=== PATIENT | male | born 1950 | race African-American/Black ===

== ENCOUNTER → 2020-09-27 11:07 | Outpatient (CLI) | payer MEDICARE, SELFPAY ==
--- NOTE | 2020-09-27 11:15 | XR_ITS ---
PROCEDURE: XR CHEST 2V CLINICAL HISTORY: ASTHMA,SOB COMPARISON: No exams were available for comparison FINDINGS: The cardiomediastinal silhouette and pulmonary vascularity are within normal limits. The lungs are clear without infiltrates, suspicious nodules, or pleural effusions. No acute bony abnormalities. IMPRESSION: No acute findings. Dictated by: Padma Ryan 09/27/2020 15:29 Padma Ryan in [place] 09/27/2020 15:29
== END ==
PROVIDERS: PCP Family Medicine; Visit Provider Family Medicine
DX: J45.909 Unspecified asthma, uncomplicated (principal); R06.02 Shortness of breath
CPT/HCPCS: 71046

== ENCOUNTER → 2020-11-07 14:57 | Outpatient (CLI) | payer MEDICARE, SELFPAY | PROVIDERS: PCP Family Medicine; Visit Provider Internal Medicine Pulmonary Disease | DX: R06.09 Other forms of dyspnea (principal) | CPT/HCPCS: 94060; 94726; 94729 ==

== ENCOUNTER → 2021-11-29 08:17 | Outpatient (CLI) | payer MEDICARE, SELFPAY ==
--- NOTE | 2021-11-29 09:05 | XR_ITS ---
FINAL REPORT CLINICAL HISTORY: RHINITIS,ASTHMA COMPARISON: September 27, 2020 FINDINGS: Two views of the chest were obtained. The heart size and pulmonary vascularity are within normal limits. The mediastinum is normal. The lungs are somewhat hyperinflated. This may represent COPD. There is no pneumothorax. The bony thorax is intact. IMPRESSION: No acute cardiopulmonary process. Reviewed, Interpreted and Dictated by Gianluca Llamas III, MD Transcribed by Lorie Marion Authenticated and [facility]
== END ==
PROVIDERS: PCP Family Medicine; Visit Provider Allergy & Immunology
DX: J30.1 Allergic rhinitis due to pollen (principal); J30.89 Other allergic rhinitis; J45.51 Severe persistent asthma with (acute) exacerbation
CPT/HCPCS: 71046

== ENCOUNTER 2021-12-11 17:15 | Inpatient (IN) | payer MEDICARE, SELFPAY ==
[2021-12-11] VITALS (20 sets, daily range): BP systolic 100–134; BP diastolic 54–86; PULSE 78–151; RESP 16–200; TEMP 36.8; O2SAT 95–99; BMI 27.4; BMI 28.9
--- NOTE | 2021-12-11 17:28 | PC.NURSE ---
JACK BEAVERS at
--- NOTE | 2021-12-11 17:34 | ECG_ITS ---
APPROVED REPORT Exam: Resting ECG HR:147 bpm ECG Measurements Heart Rate 147 AXES QRSd 72 QRS -22 QT 279 T 70 QTc 363 Conclusion ATRIAL FIBRILLATION WITH RAPID VENTRICULAR RESPONSE SEPTAL MYOCARDIAL INFARCTION , PROBABLY OLD [40+ ms Q WAVE IN V1/V2] ABNORMAL ECG UNCONFIRMED REPORT Electronically signed by : Mateus Farley MD 12/14/2021 18:05:50
--- NOTE | 2021-12-11 17:40 | HMH.EDGENADL ---
ED Disposition Condition on Discharge: Good - Critical Care Critical Care Time: Yes (35 min) Total Critical Care Time: 35 Vital system(s) involved:: Circulatory Failure My critical care processes included: Assessment & monitoring of V/S, Initial and Re-exams, Data Review/Interpretation, Coordinating Care, Medication Orders and management, Documentation <Troy Cordero - Last Filed: 12/11/21 19:46> <Mateo Lerner - Last Filed: 12/11/21 20:48> Clinical Impression: Atrial fibrillation with RVR, NSTEMI (non-ST elevated myocardial infarction) Disposition: Admitted As Inpatient Referrals: Tia Warren MD [Primary Care Provider] - Attestation: On 12/11/21, the high probability of a clinically significant, sudden or life threatening deterioration of the following system(s) required my full and direct attention, intervention and personal management. The time I documented below is in addition to time spent performing reported procedures but includes the following listed in this critical care notation. Medical Decision Making - Medical Records Medical records reviewed: Yes: I reviewed the patient's medical records. - Porter Inquiry Pt receiving controlled substance: No - Lab Data Result diagrams: 12/11/21 17:35 12/11/21 17:35 - ECG Data Tracing #1 I reviewed this ECG and interpreted as documented below: - Physician Consults Time: 18:43 (discussed with dr tamara jorge for lovenox, dilt drip, cta, call back if needed) <Troy Cordero - Last Filed: 12/11/21 19:46> - Lab Data Lab results reviewed: Yes: I reviewed the patient's lab results. Result diagrams: 12/11/21 17:35 12/11/21 17:35 - Radiology Data #1 Image(s): Chest Image Reviewed: Yes I have reviewed radiologist's interpretation Preliminary Findings: Normal/NAD - CT Data CT Scan: Chest Time Received: 20:[address] Reviewed: Yes: I have viewed the radiologist's interpretation Preliminary Findings: Normal/NAD - CON Score for Non-Stemi Age of Patient: 70-79 years old Heart Rate: 150-199 bpm Systolic Blood Pressure: 120-139 mmhg Serum Creatinine: 1.20-1.59 mg/dl CHF Killip Class: I-No CHF Other Risk Factors: Elevated Cardiac Enzymes or Biomarkers Non-Stemi Risk Score: 171 <Mateo Lerner S - Last Filed: 12/11/21 20:48> Vital Signs: 12/11/21 17:17 12/11/21 18:07 12/11/21 18:10 Temperature 98.3 F Temperature Source Oral Pulse Rate 113 H 128 H Pulse Rate [Apical] 151 H Respiratory Rate 20 22 Blood Pressure 106/62 L 110/65 Blood Pressure [Right Arm] 122/58 L Blood Pressure Mean Blood Pressure Mean [Right Arm] 79 Blood Pressure Source [Right Arm] Automatic Cuff Blood Pressure Position Blood Pressure Position [Right Arm] Sitting 02 Sat by Pulse Oximetry 98 95 Oxygen Delivery Method Room Air 12/11/21 18:20 12/11/21 18:30 12/11/21 18:41 Temperature Temperature Source Pulse Rate 118 H 78 94 H Pulse Rate [Apical] Respiratory Rate 200 H 20 Blood Pressure 111/59 L 111/57 L 108/56 L Blood Pressure [Right Arm] Blood Pressure Mean 75 78 Blood Pressure Mean [Right Arm] Blood Pressure Source [Right Arm] Blood Pressure Position Sitting Blood Pressure Position [Right Arm] 02 Sat by Pulse Oximetry 96 95 96 Oxygen Delivery Method 12/11/21 18:51 12/11/21 19:00 12/11/21 19:07 Temperature Temperature Source Pulse Rate 146 H 143 H 97 H Pulse Rate [Apical] Respiratory Rate 16 Blood Pressure 100/54 L 111/59 L 116/69 Blood Pressure [Right Arm] Blood Pressure Mean 74 Blood Pressure Mean [Right Arm] Blood Pressure Source [Right Arm] Blood Pressure Position Blood Pressure Position [Right Arm] 02 Sat by Pulse Oximetry 96 96 98 Oxygen Delivery Method Room Air 12/11/21 19:09 12/11/21 19:21 12/11/21 19:50 Temperature Temperature Source Pulse Rate 117 H 127 H 115 H Pulse Rate [Apical] Respiratory Rate 22 22 Blood Pressure 128
--- NOTE | 2021-12-11 17:42 | XR_ITS ---
PROCEDURE INFORMATION: Exam: XR Chest Exam date and time: 12/11/2021 5:54 PM Age: 71 years old Clinical indication: Patient HX: Shortness of breath per patient, history of asthma he also stated. ; Additional info: Racing heart rate TECHNIQUE: Imaging protocol: XR of the chest. Views: 1 view. COMPARISON: CR XR CHEST 2V 11/29/2021 9:09 AM FINDINGS: Lungs: Mild pulmonary scarring. Stigmata of old granulomatous disease. Pleural spaces: Unremarkable. No pleural effusion. No pneumothorax. Heart/Mediastinum: Unremarkable. No cardiomegaly. Vasculature: Vascular calcifications. Bones/joints: Unremarkable. IMPRESSION: No acute findings.
[2021-12-11 17:48] LABS: Chloride 106 mmol/L (98-107)
[2021-12-11 17:49] LABS: Potassium 4.1 mmoL/L (3.5-5.1); Sodium 142 mmol/L (136-145)
[2021-12-11 17:51] LABS: Alanine Aminotransferase 93 U/L (12-78); Alkaline Phosphatase 103 U/L (38-126); Aspartate Amino Transferase 39 U/L (17-59); Bilirubin,Total 0.8 mg/dl (0.2-1.3); Blood Urea Nitrogen 34 mg/dl (9-20); Creatinine Clearance Estimated 54 mL/min (50-200); Estimated Glomerular Filt Rate 50 ml/min (>60); GFR (African American) 61 ML/MIN (>60)
[2021-12-11 17:52] LABS: Albumin/Globulin Ratio 1.5 (1.1-1.8); Anion Gap 9.1 mEq/L (5-15); Calcium 9.3 mg/dl (8.4-10.2); Carbon Dioxide 31 mmol/L (22.0-30.0); Globulin 2.7 g/dL (1.3-3.2); Glucose 117 mg/dl (74-100); Total Protein,Serum 6.7 g/dl (6.3-8.2)
[2021-12-11 18:07] LABS: Troponin I 0.41 ng/ml (0.00-0.034)
--- NOTE | 2021-12-11 18:15 | PC.NURSE ---
DILT DRIP INCREASED TO 10MG
--- NOTE | 2021-12-11 18:32 | PC.NURSE ---
DILT DRIP INCREASED TO 15MG
[2021-12-11 18:36] LABS: Basophils % 0.5 % (0.1-2.0); Eosinophils # 0.1 K/mm3 (0.0-0.4); Eosinophils % 1.1 % (0.1-12.0); Hematocrit 48.5 % (42.0-52.0); Hemoglobin 16.1 g/dL (14.1-18.0); Lymphocytes # 1.5 K/mm3 (0.7-4.5); Lymphocytes % 18.2 % (10-50); Mean Corpuscular HGB Conc 33.3 g/dL (31.8-35.4); Mean Corpuscular Hemoglobin 34.5 pg (27.0-31.2); Mean Corpuscular Volume 103.6 fl (80-94); Mean Platelet Volume 8.3 fl (7.4-10.4); Monocytes # 0.7 K/mm3 (0.1-1.0); Monocytes % 8.1 % (1.7-9.3); Neutrophils # 5.7 K/mm3 (1.8-7.8); Platelet Count 231 K/mm3 (142-424); Red Blood Count 4.68 M/mm3 (4.60-6.20); Red Cell Distribution Width 14.1 % (11.5-17.5)
--- NOTE | 2021-12-11 18:37 | PC.NURSE ---
Dr mcdonald paged
--- NOTE | 2021-12-11 18:37 | PC.NURSE ---
Dr Cordero on with Dr Walton.
--- NOTE | 2021-12-11 18:40 | CT_ITS ---
PROCEDURE INFORMATION: Exam: CTA Chest With Contrast Exam date and time: 12/11/2021 7:30 PM Age: 71 years old Clinical indication: Other: Syncope; Additional info: Syncope, elev trop TECHNIQUE: Imaging protocol: Computed tomographic angiography of the chest with contrast. 3D rendering (Not supervised by radiologist): MIP and/or 3D reconstructed images were created by the technologist. Radiation optimization: All CT scans at this facility use at least one of these dose optimization techniques: automated exposure control; mA and/or kV adjustment per patient size (includes targeted exams where dose is matched to clinical indication); or iterative reconstruction. Contrast material: ISOVUE 370; Contrast volume: 70 ml; Contrast route: INTRAVENOUS (IV); COMPARISON: CR XR CHEST PORTABLE 12/11/2021 5:54 PM FINDINGS: Pulmonary arteries: No pulmonary emboli. Aorta: [id number] atherosclerotic disease of the aorta. Lungs: Unremarkable. No consolidation. No masses. Pleural spaces: Unremarkable. No pneumothorax. No pleural effusion. Heart: Coronary artery calcifications. Lymph nodes: Unremarkable. No enlarged lymph nodes. Liver: Low attenuation hepatic lesions measuring up to 9 mm in diameter are incompletely characterized, but are likely cysts. No followup imaging is recommended. Gallbladder and bile ducts: Contracted gallbladder. Adrenal glands: There is a 1.3 cm right adrenal nodule that cannot be classified as a lipid rich adenoma based on this examination. Kidneys and ureters: Parapelvic cyst in the left kidney are noted. 8 mm exophytic left renal lesion on image 115 series 5 is favored to be a hyperdense cyst. Bones/joints: Unremarkable. No acute fracture. Soft tissues: Unremarkable. IMPRESSION: 1. No pulmonary emboli. 2. There is a 1.3 cm right adrenal nodule that cannot be classified as a lipid rich adenoma based on this examination. Consider 12 month follow-up adrenal CT. (Reference: Enrique) COMMENTS: Consistent with the [employer]'s Incidental Findings Committee white paper (J Am Cony Radiol 2018): Any incidental renal lesion less than 1 cm or classified as too small to characterize, or any incidental cystic renal lesion characterized as simple-appearing, is likely benign. No follow-up imaging is recommended for these lesions per consensus recommendations based on imaging criteria. REFERENCES: Enrique MARINO, et al. Management of Incidental Adrenal Masses: A White Paper of the ACR Incidental Findings Committee. J Am Cony Radiol. 2017;14(8):8917-3296.
--- NOTE | 2021-12-11 18:45 | PC.NURSE ---
DILT DRIP INCREASED TO 20MG PER V.O DR ECHEVARRIA AND DR. RESENDEZ.
--- NOTE | 2021-12-11 19:00 | PC.NURSE ---
SPOKE WITH NIGHTWATCH REGARDING DIG DOSING. STATES TO GIVEN 250MCG IVP THEN 6-8 HRS GIVE 125MCG, THEN AFTER 6-8HRS GIVE 125MCG
[2021-12-11 19:57] LABS: Coronavirus 19, PCR Not Detected (NotDetected); Influenza A, PCR Not Detected (NotDetected); Influenza B, PCR Not Detected (NotDetected)
--- NOTE | 2021-12-11 20:40 | PC.NURSE ---
HS notified of need for room for admission
--- NOTE | 2021-12-11 20:41 | PC.NURSE ---
Patient admitted to 216 stepdown to service of Dr. Lerner to Dr. Pabon. Dx A Fib with RVR
[2021-12-11 20:51] LABS: T4 (Thyroxine) 8.4 ug/dl (5.53-11.0)
[2021-12-11 21:05] LABS: Thyroid Stimulating Hormone 0.17 uIU/mL (0.465-4.68)
[2021-12-11 21:10] LABS: NT Pro Brain Natriuretic Pep. 3600 pg/mL (0-125)
[2021-12-11 21:54] LABS: Troponin I 0.31 ng/ml (0.00-0.034)
--- NOTE | 2021-12-11 22:02 | PC.NURSE ---
critical troponin of 0.31 called by lab. notified. no new orders
--- NOTE | 2021-12-11 22:07 | PC.NURSE ---
PT ARRIVED TO FLOOR VIA STRETCHER FROM ED W/STAFF @ [id number]
[2021-12-12] VITALS (29 sets, daily range): BP systolic 81–146; BP diastolic 40–114; PULSE 76–154; RESP 16–20; TEMP 36.4–37; O2SAT 93–100; BMI 27.9
--- NOTE | 2021-12-12 | IR_ITS ---
APPROVED REPORT Patient Location: Inpatient PROCEDURES Left heart catheterization Left ventriculogram Selective coronary angiogram INDICATION Acute non-ST elevation myocardial infarction, Coronary artery disease, Atrial fibrillation rapid ventricular response, Abnormal echocardiogram apical hypokinesis Informed consent was obtained prior to the procedure. COMPLICATIONS None Estimated Blood Loss: Less than 10 mls TECHNIQUE One percent lidocaine used to anesthetize the right anterior aspect of the wrist. The right radial artery was accessed via the Seldinger technique. A 6 Sinhala sheath was placed in the right radial artery. 2.5 mg of verapamil, 800 mcg of nitroglycerin, 1mg Lidocaine and 5000 U Heparin were given through the arterial sheath. The papa catheter was also used to perform left heart catheterization, left ventriculogram and selective coronary angiogram. At the end of the procedure the sheath was removed good hemostasis was achieved using Traclet band, patient was transferred to the postop holding area in stable condition. ANGIOGRAPHIC RESULTS The left main artery Normal The left anterior descending artery Ostially occluded. The entire LAD fills via large collaterals from the distal right coronary artery. The mid LAD has an 90% concentric stenosis The circumflex artery Nondominant with a proximal calcified 30% stenosis followed by a mid vessel calcified 30% stenosis The right coronary artery Dominant with a proximal concentric 20 to 30% stenosis. Distally the vessel fills the LAD via large septal perforating vessels as well as via the distal LAD The MOSELEY ventriculogram reveals Preserved at 60% with mild apical hypokinesis The left ventricular end-diastolic pressure 15 mmHg IMPRESSION Coronary artery disease as described above with a chronically occluded proximal LAD which fills nicely via dense collaterals from the distal right coronary artery and via large septal perforating vessels Atrial fibrillation rapid ventricular response Preserved ejection fraction Borderline elevated LVEDP PLAN 1. Start patient on amiodarone drip and continue anticoagulation 2. Recommend BARBRA on Friday with planned cardioversion 3. The films were sent to [facility] and I discussed the patient with Dr. Anand. Given the chronicity of the LAD occlusion patient may be a better candidate for chronic medical management Electronically signed by : Patric Walton MD 12/12/2021 12:17:00
[2021-12-12 01:00] LABS: Troponin I 0.32 ng/ml (0.00-0.034)
--- NOTE | 2021-12-12 01:00 | PC.NURSE ---
Critical lab reported
--- NOTE | 2021-12-12 06:35 | PC.NURSE ---
Bhavya SANCHEZ NOTIFIED OF CONSULT
[2021-12-12 06:51] LABS: Basophils % 0.5 % (0.1-2.0); Eosinophils # 0.1 K/mm3 (0.0-0.4); Eosinophils % 1.6 % (0.1-12.0); Hematocrit 41.4 % (42.0-52.0); Lymphocytes # 1.7 K/mm3 (0.7-4.5); Lymphocytes % 24.8 % (10-50); Mean Corpuscular HGB Conc 32.6 g/dL (31.8-35.4); Mean Corpuscular Hemoglobin 33.8 pg (27.0-31.2); Mean Corpuscular Volume 103.7 fl (80-94); Monocytes # 0.6 K/mm3 (0.1-1.0); Neutrophils # 4.4 K/mm3 (1.8-7.8); Platelet Count 200 K/mm3 (142-424); Red Cell Distribution Width 14.1 % (11.5-17.5); White Blood Count 6.8 K/mm3 (4.8-10.8)
--- NOTE | 2021-12-12 06:52 | PC.NURSE ---
Pt remains on Diltaizem gtt@ 10 mg/hr. He is currently NPO for cardiac consult this am. Pt denies any discomfort. On RA. BP stable. at bedside. Will continue to monitor.
[2021-12-12 06:57] LABS: Chloride 110 mmol/L (98-107); Potassium 3.6 mmoL/L (3.5-5.1); Sodium 138 mmol/L (136-145)
[2021-12-12 06:59] LABS: Blood Urea Nitrogen 22 mg/dl (9-20); Creatinine Clearance Estimated 77 mL/min (50-200); Estimated Glomerular Filt Rate 83 ml/min (>60); GFR (African American) 101 ML/MIN (>60)
[2021-12-12 07:00] LABS: Anion Gap 6.6 mEq/L (5-15); Calcium 8.3 mg/dl (8.4-10.2); Carbon Dioxide 25 mmol/L (22.0-30.0); Chol/HDL Ratio 2.9 (1-3.5); Cholesterol 218 mg/dl (140-200); Glucose 106 mg/dl (74-100); HDL Cholesterol 75 mg/dl (40-60); Magnesium 1.9 mg/dl (1.6-2.3); Triglycerides 98 mg/dl (30-150); VLDL Cholesterol 20 mg/dL (0-40)
[2021-12-12 07:11] LABS: Direct LDL Cholesterol 105.11 mg/dL (100-129)
[2021-12-12 07:16] LABS: Hemoglobin 13.5 g/dL (14.1-18.0)
--- NOTE | 2021-12-12 07:23 | P.CONPHA_ITS ---
[facility] Pharmacy VTE Monitoring - Patient Demographics Admission date: 12/11/21 Report Date: 12/12/21 Time: 07:23 Allergies/Adverse Reactions: Patient Allergies No Known Allergies Allergy (Unverified 11/15/20 14:00) Height: 1.68 m Weight: 78.925 kg Patient Problems: Current Active Problems Atrial fibrillation with RVR (Acute) NSTEMI (non-ST elevated myocardial infarction) (Acute) - VTE Risk Labs: VTE Related Lab Results Hgb 13.5 g/dL (14.1-18.0) L D 12/12/21 06:20 Hct 41.4 % (42.0-52.0) L 12/12/21 06:20 Plt Count 200 K/mm3 (142-424) 12/12/21 06:20 BUN 22 mg/dl (9-20) H D 12/12/21 06:20 Creatinine 0.90 mg/dl (0.66-1.25) D 12/12/21 06:20 Estimated Creat Clear 77 mL/min (50-200) 12/12/21 06:20 VTE Risk Level: Moderate Risk - Prophylaxis VTE Prophylaxis Ordered?: Yes Types of VTE Prophylaxis: TEDS Knee High Location of Applied Device: Bilateral Lower Extremeties
--- NOTE | 2021-12-12 07:47 | HMH.PHAINT ---
MEDICATION RECONCILIATION COMPLETED ON PATIENT USING EXTERNAL FILL HISTORY FROM PHARMACY. -JEY GALVEZ, JOLANTAD
--- NOTE | 2021-12-12 08:00 | CA_ITS ---
APPROVED REPORT EXAM: Comprehensive 2D, Doppler, and color-flow Echocardiogram Sign Language Teacher: Vickie Astudillo RT(R) Ht: 5 ft 6 in Wt: 171lbs BSA: 1.87 BP: 126/86 mmHg Indications: Hypertension/HDD 2D Dimensions LVOT 2.05 cm (M/F) 1.5-2.5 LVEF (Sidhu's) 68.40 % M: 52 - 72 LV Volume 74.10 mL M: 62 - 150 LV Volume Index 39.62 mL/m2 M: 34 - 74 LA Volume 36.70 mL LA Volume Index 19.62 mL/m2 (M/F) 16-34 M-Mode Dimensions RVDd 2.85 cm (0.9-2.6) LA Diam 3.84 cm (1.9-4.0) LVDd 4.28 cm (3.5-5.7) Ao Diam 2.80 cm (2.0-3.7) LVDs 3.64 cm (3.5-5.7) IVSd 0.78 cm (0.6-1.1) PWd 0.93 cm (0.6-1.1) EF (Teich) 32.00% FS 15.00% EDV (Teich) 82.20 mL ESV (Teich) 55.90 mL Tricuspid Valve TR P. Velocity 201.00 cm/s RAP Estimate 10.00 mmHg RVSP 26.20 mmHg Left Ventricle Left atrium is mildly enlarged, left ventricle is normal size, mild concentric left ventricular hypertrophy, estimated ejection fraction 55% with no obvious regional wall motion abnormality in the afternoons, diastolic parameters are inconclusive. Right Ventricle Right atrium and right ventricle are normal size and contractility. Aortic Valve Aortic valve is thickened and calcified without aortic stenosis or aortic insufficiency. Mitral Valve Mitral valve is minimally thickened, there is mild mitral regurgitation. Tricuspid Valve Tricuspid valve grossly normal, there is mild tricuspid regurgitation, calculated right ventricular systolic pressure 26 mmHg. Pulmonic Valve Pulmonic valve is poorly visualized. Great Vessels Aortic root is normal size. Inferior vena cava normal size with normal inspiratory collapse. Pericardium No significant pericardial effusion noted Conclusion 1. Mildly enlarged left atrium, normal left ventricular size, mild concentric left ventricular hypertrophy, estimated ejection fraction 55% with no regional wall motion abnormality, diastolic parameters are inconclusive. 2. Mild mitral and tricuspid regurgitation, calculated right ventricular systolic pressure 26 mmHg. 3. No significant pericardial effusion. 4. Inferior vena cava normal size with normal inspiratory collapse. Electronically signed by : Alessio Cuellar MD 12/12/2021 16:09:59
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
--- NOTE | 2021-12-12 10:28 | PC.NURSE ---
off unit at this time to director of cath lab, called and spoke with pt and notified her pt was going down at this time as well. [id number]
--- NOTE | 2021-12-12 11:11 | SUR.PHASEII ---
verbal order given per Dr. Walton to increase pt's Cardizem drip to 20 ml/hr.
--- NOTE | 2021-12-12 11:50 | PC.NURSE ---
Addendum entered by Martha Crawford RN 12/12/21 14:28: 1240 Received in report from labourers that pt Diltiazem drip had been increased to 20mg per Dr Walton. 1340 drip decreased to 10ml r/t hr in the 70's and 80's 1400 Diltiazem drip stopped r/t HR in the upper 50's and low 60's Original Note: at start of shift pt diltiazem drip was at 10mg. rate increased to 15mg at 0830 r/t pt hr in the upper 110-120 range. MD maciel
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
--- NOTE | 2021-12-12 12:58 | PC.NURSE ---
Spoke with Prerna Bailey in order to clarify amio and diltiazem drip orders. [id number]
--- NOTE | 2021-12-12 14:38 | PC.NURSE ---
air removed from traclet: 1300 2ml 1315 2ml 1345 2ml 1400 2ml 1415 2ml 1435 2ml no bleeding or hematoma noted before or after air removed each time. at 1440 cath site cleaned with chlorhexadine and dressed with telfa and tegaderm. pt informed of restrictions on r arm following cath. and pt indicate understanding.
[2021-12-13] VITALS (11 sets, daily range): BP systolic 100–133; BP diastolic 58–87; PULSE 78–120; RESP 16–18; TEMP 36.4–36.9; O2SAT 96–98; BMI 27.9
--- NOTE | 2021-12-13 05:20 | PC.NURSE ---
Pt has remained in controlled afib on telemetry. VS have remained stable. Amiodarone is infusing @ 16.7 ml/hr. Has not voiced any complaints. Pt has ambulated to BR without difficulty. No other concerns. Will continue to monitor.
[2021-12-13 05:54] LABS: Basophils # 0.1 K/mm3 (0-0.2); Eosinophils # 0.1 K/mm3 (0.0-0.4); Hematocrit 40.1 % (42.0-52.0); Hemoglobin 13.1 g/dL (14.1-18.0); Lymphocytes # 1.5 K/mm3 (0.7-4.5); Lymphocytes % 23.2 % (10-50); Mean Corpuscular HGB Conc 32.7 g/dL (31.8-35.4); Mean Corpuscular Hemoglobin 33.8 pg (27.0-31.2); Mean Corpuscular Volume 103.1 fl (80-94); Mean Platelet Volume 7.8 fl (7.4-10.4); Monocytes # 0.5 K/mm3 (0.1-1.0); Monocytes % 7.1 % (1.7-9.3); Neutrophils # 4.3 K/mm3 (1.8-7.8); Neutrophils % 66.6 % (37.0-80.0); Platelet Count 182 K/mm3 (142-424); Red Blood Count 3.88 M/mm3 (4.60-6.20); Red Cell Distribution Width 14.3 % (11.5-17.5); White Blood Count 6.5 K/mm3 (4.8-10.8)
[2021-12-13 06:08] LABS: Chloride 115 mmol/L (98-107); Potassium 4.9 mmoL/L (3.5-5.1); Sodium 136 mmol/L (136-145)
[2021-12-13 06:11] LABS: Blood Urea Nitrogen 16 mg/dl (9-20); Creatinine Clearance Estimated 70 mL/min (50-200); Estimated Glomerular Filt Rate 66 ml/min (>60); GFR (African American) 80 ML/MIN (>60)
[2021-12-13 06:12] LABS: Anion Gap 5.9 mEq/L (5-15); Calcium 8.1 mg/dl (8.4-10.2); Carbon Dioxide 20 mmol/L (22.0-30.0); Glucose 108 mg/dl (74-100)
--- NOTE | 2021-12-13 08:33 | HMH.PNCARD ---
Subjective Date: 12/13/21 Time: 08:33 Principal diagnosis: Atrial fibrillation Interval history: 71-year-old black male to lying in bed in no acute distress. Denies any chest pain, pressure or tightness overnight. Telemetry shows continued atrial fibrillation with heart rate in the 100-110 bpm range. IV amiodarone started yesterday and continues at this time. Results of cardiac catheterization reviewed with patient with recommendation for medical therapy. Exam Vital signs and Labs for Last 24 Hours: Temp Pulse Resp BP Pulse Ox 97.6 F 93 H 16 129/70 97 12/13/21 08:00 12/13/21 06:00 12/13/21 06:00 12/13/21 06:00 12/13/21 06:00 Laboratory Results - last 24 hr 12/13/21 05:41: WBC 6.5, RBC 3.88 L, Hgb 13.1 L, Hct 40.1 L, MCV 103.1 H, MCH 33.8 H, MCHC 32.7, RDW 14.3, Plt Count 182, MPV 7.8, Neut % (Auto) 66.6, Lymph % (Auto) 23.2, [place] % (Auto) 7.1, Eos % (Auto) 2.0, Baso % (Auto) 1.0, Neut # (Auto) 4.3, Lymph # (Auto) 1.5, [place] # (Auto) 0.5, Eos # (Auto) 0.1, Baso # (Auto) 0.1 12/13/21 05:41: Sodium 136, Potassium 4.9 D, Chloride 115 H, Carbon Dioxide 20 L, Anion Gap 5.9, BUN 16 D, Creatinine 1.10 D, Estimated Creat Clear 70, Estimated GFR 66, Est GFR ( Amer) 80 D, Glucose 108 H, Calcium 8.1 L I & O for Last 24 hours: Intake & Output 12/10/21 12/11/21 12/12/21 12/13/21 11:59 11:59 11:59 11:59 Intake Total 601 / 601 Balance 601 / 601 Weight 174 lb 173 lb 15.997 oz - Constitutional no acute distress - *Routine Respiratory Exam Present: CTA bilaterally - *Routine Cardiovascular Exam Present: RRR - *Routine Extremities Exam Absent: cyanosis, clubbing, edema - *Routine Neurological Exam Present: alert, oriented X3 Progress Note: A&P (1) NSTEMI (non-ST elevated myocardial infarction) Status: Acute (2) Atrial fibrillation with RVR Status: Acute (3) Hypertension Status: Acute (4) Hyperlipidemia Status: Acute (5) History of colon cancer in adulthood Status: Acute (6) Asthma Status: Acute (7) CAD (coronary artery disease) Status: Acute Assessment and Plan for All Diagnoses:: 1. New onset atrial fibrillation with rapid ventricular response, rate has improved with beta-patricia therapy and IV amiodarone. Xarelto has been started. CTA of the chest negative for pulmonary embolus. If patient remains in atrial fibrillation tomorrow then plan to proceed with BARBRA and cardioversion. 2. NSTEMI with recent near syncopal episode, likely all remote related to demand ischemia from new onset atrial fibrillation. Cardiac catheterization yesterday showed chronically occluded LAD with significant right to left collaterals from the RCA. Discussed options with surgeon who recommended medical therapy. Continue metoprolol, Entresto, atorvastatin, aspirin therapy. 3. Hypertension, controlled 4. Elevated BNP with no evidence of CHF on chest x-ray 5. Mild anemia, possibly dilutional 6. KRISTI, resolved with IV fluids 7. Hyperthyroidism with low TSH noted. New. 8. Asthma, per PCP.
--- NOTE | 2021-12-13 09:39 | HMH.ACPN2 ---
Internal Medicine - PN: Subj *Date: 12/13/21 *Time: 09:39 Interval history: 71-year-old male patient sitting up in bed resting quietly he denies any chest pain during the night. Amiodarone drip is infusing for ongoing A. fib with RVR. He is tentatively scheduled for BARBRA with possible cardioversion in a.m. explained procedure with patient he verbalizes understanding. Exam Vital signs and Labs for Last 24 Hours: Temp Pulse Resp BP Pulse Ox 97.6 F 93 H 16 129/70 97 12/13/21 08:00 12/13/21 06:00 12/13/21 06:00 12/13/21 06:00 12/13/21 06:00 Laboratory Results - last 24 hr 12/13/21 05:41: WBC 6.5, RBC 3.88 L, Hgb 13.1 L, Hct 40.1 L, MCV 103.1 H, MCH 33.8 H, MCHC 32.7, RDW 14.3, Plt Count 182, MPV 7.8, Neut % (Auto) 66.6, Lymph % (Auto) 23.2, [place] % (Auto) 7.1, Eos % (Auto) 2.0, Baso % (Auto) 1.0, Neut # (Auto) 4.3, Lymph # (Auto) 1.5, [place] # (Auto) 0.5, Eos # (Auto) 0.1, Baso # (Auto) 0.1 12/13/21 05:41: Sodium 136, Potassium 4.9 D, Chloride 115 H, Carbon Dioxide 20 L, Anion Gap 5.9, BUN 16 D, Creatinine 1.10 D, Estimated Creat Clear 70, Estimated GFR 66, Est GFR ( Amer) 80 D, Glucose 108 H, Calcium 8.1 L I & O for Last 24 hours: Intake & Output 12/10/21 12/11/21 12/12/21 12/13/21 23:59 23:59 23:59 23:59 Intake Total 601 / 601 100 / 100 Balance 601 / 601 100 / 100 Weight 180 lb 3 oz 174 lb 173 lb 15.997 oz - Constitutional no acute distress - *Routine HEENT Exam Head: Present: normocephalic Eye: Present: EOMI ENT: Present: mucous membranes moist - *Routine Neck Exam Present: trachea midline. Absent: tracheal deviation - *Routine Respiratory Exam Present: CTA bilaterally. Absent: accessory muscle use - *Routine Cardiovascular Exam Present: tachycardia, irregularly irregular - *Routine Abdominal Exam Present: soft, normoactive bowel sounds. Absent: tenderness, firm - *Routine Extremities Exam Present: full ROM, pulses intact. Absent: cyanosis, clubbing, edema - *Routine Skin Exam Present: intact, dry. Absent: cyanosis, erythema - *Routine Neurological Exam Present: alert, oriented X3. Absent: motor deficit - Routine Psychiatric Exam Present: normal affect, normal thought process. Absent: tactile hallucinations Assessment and Plan (1) NSTEMI (non-ST elevated myocardial infarction) Status: Acute Category: Medical Code(s): I21.4 - Non-ST elevation (NSTEMI) myocardial infarction (2) Atrial fibrillation with RVR Status: Acute Category: Medical Code(s): I48.91 - Unspecified atrial fibrillation (3) Hypertension Status: Acute Category: Medical Code(s): I10 - Essential (primary) hypertension (4) Hyperlipidemia Status: Acute Category: Medical Code(s): E78.5 - Hyperlipidemia, unspecified (5) History of colon cancer in adulthood Status: Acute Category: Medical Code(s): Z85.038 - Personal history of other malignant neoplasm of large intestine (6) Asthma Status: Acute Category: Medical Code(s): J45.909 - Unspecified asthma, uncomplicated (7) CAD (coronary artery disease) Status: Acute Category: Medical Code(s): I25.10 - Atherosclerotic heart disease of [place] coronary artery without angina pectoris - Assessment and plan all Dx Assessment and Plan for all problems:: Rounded with Dr. Pabon, all orders per Dr. Pabon: 1. Amiodarone infusing 2. Plan for BARBRA with possible cardioversion in a.m. 3. Cardiology following
--- NOTE | 2021-12-13 16:49 | PC.NURSE ---
No acute changes noted this shift, patient remains in afib per telemetry, rate controlled, transitioned to oral amiodarone this afternoon with plans for BARBRA and cardioversion in the am, remains on RA, alert and oriented x4, denies any cp or soa, ambulates independently to BR, voids without difficulty, vss.
[2021-12-14] VITALS (8 sets, daily range): BP systolic 86–125; BP diastolic 45–80; PULSE 60–100; RESP 16–20; TEMP 36.6; O2SAT 93–100; BMI 28.6
--- NOTE | 2021-12-14 | CA_ITS ---
APPROVED REPORT EXAM: Comprehensive 2D, Doppler, and color-flow Echocardiogram Marble Polisher Hand: RT Michelle(R) Ht: 5 ft 6 in Wt: 178lbs BSA: 1.90 BP: 126/86 mmHg Indications: AFIB, HTN. Procedure After obtaining informed consent, patient underwent transesophageal echo in the [facility]. Type of Sedation : Conscious Sedation Sedation was administered by Katelyn TrevizoN.Tia. Transesophageal probe was inserted and advanced into esophagus without difficulty by Dr. Oma Garcia. The BARBRA was performed without complications. Synchronized Cardioversion attempted: Successful Synchronized Cardioversion acheived with 200 Joules after 1 attempt(s). Rhythm following Synchronized Cardioversion: Normal Sinus Rhythm Throughout the procedure, the blood pressure, pulse oximetry, cardiac rhythm, and rate were monitored. The patient tolerated the procedure without adverse effects. Recovery from conscious sedation was uneventful and vital signs were stable. Left Ventricle Left ventricle is normal size mild concentric left ventricular hypertrophy, estimated ejection fraction 55% with no regional wall motion abnormality in the obtained views. Right Ventricle Right ventricle is mildly enlarged with normal contractility. Atria Left atrium is mildly enlarged, left appendage free of thrombus, there is good appendage flow by spectral Doppler. Right atrium is mildly enlarged. Intra-atrial septum is intact, there is patent foramen ovale with [id number] shunt, agitated saline contrast study did not identify [id number] shunt. Aortic Valve Aortic valve is thickened and calcified without aortic stenosis or aortic insufficiency. Mitral Valve Mitral valve is grossly normal, there is mild mitral regurgitation. Tricuspid Valve Tricuspid grossly normal, there is mild tricuspid regurgitation. Pulmonic Valve Pulmonic valve is grossly normal. Great Vessels Aortic root is normal size. Ascending, arch and descending thoracic aorta there is no aneurysm or dissection, normal vital atheromatous plaque seen in the descending thoracic aorta. Pericardium No significant pericardial effusion noted. Conclusion 1. Mild biatrial enlargement, normal left ventricular size mild concentric left ventricle hypertrophy, estimated ejection fraction 55% with no regional wall motion abnormality in the obtained views. 2. No thrombus seen in the left atrial appendage. 3. Mild mitral and tricuspid regurgitation. 4. No significant pericardial effusion noted. 5. Successful electrical DC cardioversion to restore sinus rhythm. Electronically signed by : Alessio Cuellar MD 12/14/2021 13:25:20
--- NOTE | 2021-12-14 06:28 | PC.NURSE ---
pt rested well throughout shift, pt ambulates independently to bathroom, VSS, pt has been NPO since midnight for procedure this am, will continue to monitor
--- NOTE | 2021-12-14 08:03 | HMH.PNCARD ---
Subjective Date: 12/14/21 Time: 08:03 Principal diagnosis: Atrial fibrillation Interval history: 71-year-old black male in bed in no acute distress. Denies any chest pain, pressure or tightness overnight. Telemetry shows atrial fibrillation with variable rate around 100 bpm. All questions answered regarding BARBRA and cardioversion today. Exam Vital signs and Labs for Last 24 Hours: Temp Pulse Resp BP Pulse Ox 97.9 F 64 16 103/66 L 98 12/14/21 04:00 12/14/21 04:00 12/14/21 04:00 12/14/21 04:00 12/14/21 04:00 I & O for Last 24 hours: Intake & Output 12/11/21 12/12/21 12/13/21 12/14/21 11:59 11:59 11:59 11:59 Intake Total 701 / 701 1039 / 1039 Balance 701 / 701 1039 / 1039 Weight 174 lb 173 lb 15.821 oz 178 lb 4.8 oz - Constitutional no acute distress - *Routine Respiratory Exam Present: CTA bilaterally - *Routine Cardiovascular Exam Present: irregularly irregular - *Routine Extremities Exam Absent: cyanosis, clubbing, edema - *Routine Neurological Exam Present: alert, oriented X3 Progress Note: A&P (1) NSTEMI (non-ST elevated myocardial infarction) Status: Acute (2) Atrial fibrillation with RVR Status: Acute (3) Hypertension Status: Acute (4) Hyperlipidemia Status: Acute (5) History of colon cancer in adulthood Status: Acute (6) Asthma Status: Acute (7) CAD (coronary artery disease) Status: Acute Assessment and Plan for All Diagnoses:: Plan for BARBRA cardioversion today. Patient could potentially be discharged visit this evening. Home medication recommendations Amiodarone 400 mg twice daily for 1 week then will reduce to 400 mg daily Metoprolol succinate 50 mg daily Aspirin 81 mg daily Xarelto 20 mg daily Atorvastatin 40 mg daily Entresto 24/26 mg twice daily Protonix 40 mg daily Follow-up in our office next week.
--- NOTE | 2021-12-14 09:32 | P.PN_ITS ---
[facility] Anesthesia Checklist - Patient Identification Patient Identification: Arm Band - Structural Data Admitted From: Home Planned Operative Procedure/s: BARBRA/Cardioversion Consent for Planned Operative Procedure(s) Verified: Yes - NPO Status Verified Time NPO: 00:00 - Airway Assessment C-Spine Mobility Assessed: Yes TMJ Mobility Assessed: Yes Dentition: Poor Dentition - Neurological Assessment Level of Consciousness: Awake Hx Seizures: No Numbness or tingling in extremities: No - Anesthesia Plan Anesthesia Risk discussed: Yes Anesthesia Plan: Verified ASA Class: III Anesthesia Type: MAC [facility] History I have reviewed the patient's past medical history: Yes Medical History: Reports:: Arrhythmia, Asthma, Atrial Fibrillation, Cancer, Hyperlipidemia, Hypertension, Myocardial Infarction *Have you ever received a pneumonia vaccine?: Yes *Have you received a flu vaccine this season?: Yes Anesthesia experience/problems:: None Other Surgeries: Yes: Appendectomy, Colonoscopy, Colon Resection, Other - *Social History Smoking Status: Never smoker Alcohol Intake: never Substance Use Type: denies use *Occupational Status:: retired *Travel in the last 8 weeks: None Family Hx:: Asthma, Cancer, Hypertension
--- NOTE | 2021-12-14 11:27 | ECG_ITS ---
APPROVED REPORT Exam: Resting ECG HR:67 bpm ECG Measurements Heart Rate 67 AXES AZ 134 P 66 QRSd 84 QRS -42 QT 404 T 29 QTc 420 Conclusion SINUS RHYTHM POSSIBLE LEFT ATRIAL ENLARGEMENT [-0.1mV P-WAVE IN V1/V2] LEFT AXIS DEVIATION [QRS AXIS < -30] NONSPECIFIC T-WAVE ABNORMALITY ABNORMAL ECG UNCONFIRMED REPORT Electronically signed by : Mateus Farley MD 12/14/2021 15:33:16
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
--- NOTE | 2021-12-14 15:12 | HMH.PHAINT ---
DISCHARGE MEDICATION COUNSELING PROVIDED. DISCUSSED THE FOLLOWING WITH THE PATIENT AND HIS : -STOP THE FOLLOWING: LISINOPRIL, DILTIAZEM -ATORVASTATIN 40MG HS IS LISTED A NEW MEDICATION, BUT THIS IS THE SAME BEFORE ADMISSION, JUST A NEW RX SENT TO [facility]. -AMIODARONE - FOR IRREGULAR HEARTBEAT, TAKE TWICE DAILY FOR 7 DAYS THEN BACK DOWN TO ONCE DAILY, DIZZINESS/LIGHTHEADEDNESS -PANTOPRAZOLE - FOR STOMACH, TAKE AT BEDTIME -ASPIRIN - FOR HEART, TAKE DAILY, BRUISE/BLEED RISK, BRUISING MAY LAST LONGER, WATCH FOR BLEEDING IN URINE/STOOL. -ENTRESTO - FOR HEART/BP, TAKE TWICE DAILY, WATCH FOR DIZZINESS/LIGHTHEADEDNESS, MAY INCREASE K+ LEVELS, COUGH -METOPROLOL - FOR HEART/BP, TAKE DAILY, WATCH FOR DIZZINESS/LIGHTHEADEDNESS -XARELTO - BLOOD THINNER, BLEED/BRUISE RISK, WATCH FOR BLEEDING IN URINE/STOOL/VOMIT, WHERE BLEED OCCURS CHANGES APPEARANCE, GO TO ER IF YOU BUMP HEAD PATIENT AND HAD TO QUESTIONS AT THIS TIME.
--- NOTE | 2021-12-18 15:08 | CARE MANAGER ---
Contacted patient's . She states he is doing very well. There was an issue when they picked up the medication, but she states it was resolved and he got everything he needed. We reviewed the patient's follow up appointments and they deny any questions or concerns at this time. CLAUDIA Castillo
== END 2021-12-14 15:45 | disposition home or self-care (01) | DRG 282 ==
LOC: ER 20:54 → 2ND 21:10
PROVIDERS: Internal Medicine; Internal Medicine Cardiovascular Disease; Admitting Provider Emergency Medicine; Emergency Provider Emergency Medicine; PCP Family Medicine; Visit Provider Family Medicine
PROC: 4A023N7 Measurement of Cardiac Sampling and Pressure, Left Heart, Percutaneous Approach (ICD-10-PCS; principal; 2021-12-12 13:00)
DX: I48.91 Unspecified atrial fibrillation (principal); I21.4 Non-ST elevation (NSTEMI) myocardial infarction; I25.10 Atherosclerotic heart disease of native coronary artery without angina pectoris; I10 Essential (primary) hypertension; E78.5 Hyperlipidemia, unspecified; Z85.038 Personal history of other malignant neoplasm of large intestine; J45.909 Unspecified asthma, uncomplicated
CPT/HCPCS: 36415; 71045; 71275; 80048; 80053; 80061; 83735; 83880; 84436; 84443; 84484; 85025; 93005; 93306; 93312; 93458; 99152; 99291; C1725; C1769; C9803; J0282; J1644; J7060; Q9967; U0003; U0005

== ENCOUNTER → 2021-12-25 08:23 | Outpatient (CLI) | payer MEDICARE, SELFPAY ==
[2021-12-25 08:53] LABS: Basophils # 0.1 K/mm3 (0-0.2); Basophils % 1.9 % (0.1-2.0); Eosinophils # 0.2 K/mm3 (0.0-0.4); Eosinophils % 3.3 % (0.1-12.0); Hematocrit 47.5 % (42.0-52.0); Hemoglobin 14.2 g/dL (14.1-18.0); Lymphocytes # 1.5 K/mm3 (0.7-4.5); Lymphocytes % 29.1 % (10-50); Mean Corpuscular HGB Conc 29.9 g/dL (31.8-35.4); Mean Corpuscular Volume 110.6 fl (80-94); Monocytes # 0.5 K/mm3 (0.1-1.0); Monocytes % 9.7 % (1.7-9.3); Neutrophils # 2.8 K/mm3 (1.8-7.8); Platelet Count 252 K/mm3 (142-424); Red Blood Count 4.29 M/mm3 (4.60-6.20); Red Cell Distribution Width 14.3 % (11.5-17.5)
[2021-12-25 10:11] LABS: Chloride 105 mmol/L (98-107); Potassium 4.4 mmoL/L (3.5-5.1); Sodium 139 mmol/L (136-145)
[2021-12-25 10:14] LABS: Anion Gap 9.4 mEq/L (5-15); Blood Urea Nitrogen 18 mg/dl (9-20); Calcium 9.3 mg/dl (8.4-10.2); Carbon Dioxide 29 mmol/L (22.0-30.0); Estimated Glomerular Filt Rate 46 ml/min (>60); GFR (African American) 56 ML/MIN (>60); Glucose 79 mg/dl (74-100)
[2021-12-25 15:26] LABS: Occult Blood,Stool Positive (Negative)
== END ==
PROVIDERS: PCP Family Medicine; Visit Provider Nurse Practitioner Family
DX: K92.1 Melena (principal)
CPT/HCPCS: 36415; 80048; 82272; 85025; G0328

== ENCOUNTER → 2022-01-04 06:52 | Outpatient (CLI) | payer MEDICARE, SELFPAY | PROVIDERS: PCP Family Medicine; Visit Provider Internal Medicine Cardiovascular Disease | DX: E78.5 Hyperlipidemia, unspecified (principal); I10 Essential (primary) hypertension; I25.10 Atherosclerotic heart disease of native coronary artery without angina pectoris; I48.0 Paroxysmal atrial fibrillation; Z79.899 Other long term (current) drug therapy | CPT/HCPCS: 78452; 93017; A9502; J2785 ==

== ENCOUNTER → 2022-02-01 10:43 | Outpatient (CLI) | payer MEDICARE, SELFPAY ==
[2022-02-01 12:20] LABS: Anion Gap 7.1 mEq/L (5-15); Blood Urea Nitrogen 17 mg/dl (9-20); Carbon Dioxide 29 mmol/L (22.0-30.0); Chloride 108 mmol/L (98-107); Estimated Glomerular Filt Rate 60 ml/min (>60); GFR (African American) 72 ML/MIN (>60); Glucose 95 mg/dl (74-100); Potassium 4.1 mmoL/L (3.5-5.1); Sodium 140 mmol/L (136-145)
[2022-02-01 12:29] LABS: NT Pro Brain Natriuretic Pep. 265 pg/mL (0-125)
== END ==
PROVIDERS: PCP Family Medicine; Visit Provider Internal Medicine Cardiovascular Disease
DX: E78.5 Hyperlipidemia, unspecified (principal); I10 Essential (primary) hypertension; I21.4 Non-ST elevation (NSTEMI) myocardial infarction; I25.10 Atherosclerotic heart disease of native coronary artery without angina pectoris; R00.1 Bradycardia, unspecified; R53.83 Other fatigue; R55 Syncope and collapse; Z85.038 Personal history of other malignant neoplasm of large intestine; R94.39 Abnormal result of other cardiovascular function study
CPT/HCPCS: 36415; 80048; 83880; 93225

== ENCOUNTER → 2022-02-08 09:06 | Outpatient (CLI) | payer MEDICARE, SELFPAY ==
[2022-02-08 10:20] LABS: Blood Urea Nitrogen 16 mg/dl (9-20); Calcium 9.2 mg/dl (8.4-10.2); Carbon Dioxide 29 mmol/L (22.0-30.0); Chloride 106 mmol/L (98-107); Estimated Glomerular Filt Rate 60 ml/min (>60); GFR (African American) 72 ML/MIN (>60); Glucose 107 mg/dl (74-100); Sodium 139 mmol/L (136-145)
== END ==
PROVIDERS: PCP Family Medicine; Visit Provider Internal Medicine Cardiovascular Disease
DX: E78.5 Hyperlipidemia, unspecified (principal); I10 Essential (primary) hypertension; I21.4 Non-ST elevation (NSTEMI) myocardial infarction; I25.10 Atherosclerotic heart disease of native coronary artery without angina pectoris; R00.1 Bradycardia, unspecified; R53.83 Other fatigue; R55 Syncope and collapse; Z85.038 Personal history of other malignant neoplasm of large intestine
CPT/HCPCS: 36415; 80048

== ENCOUNTER → 2022-02-22 09:36 | Outpatient (CLI) | payer MEDICARE, SELFPAY ==
[2022-02-22 11:17] LABS: Anion Gap 9.6 mEq/L (5-15); Blood Urea Nitrogen 22 mg/dl (9-20); Calcium 8.7 mg/dl (8.4-10.2); Carbon Dioxide 27 mmol/L (22.0-30.0); Chloride 105 mmol/L (98-107); Estimated Glomerular Filt Rate 55 ml/min (>60); GFR (African American) 66 ML/MIN (>60); Glucose 98 mg/dl (74-100); Potassium 3.6 mmoL/L (3.5-5.1); Sodium 138 mmol/L (136-145)
== END ==
PROVIDERS: PCP Family Medicine; Visit Provider Internal Medicine Cardiovascular Disease
DX: E78.5 Hyperlipidemia, unspecified (principal); I10 Essential (primary) hypertension; I21.4 Non-ST elevation (NSTEMI) myocardial infarction; I25.10 Atherosclerotic heart disease of native coronary artery without angina pectoris; I44.4 Left anterior fascicular block; R00.1 Bradycardia, unspecified; R53.83 Other fatigue; R55 Syncope and collapse; R94.31 Abnormal electrocardiogram [ECG] [EKG]; R94.39 Abnormal result of other cardiovascular function study; Z85.038 Personal history of other malignant neoplasm of large intestine
CPT/HCPCS: 36415; 80048

== ENCOUNTER → 2022-10-09 09:22 | Outpatient (CLI) | payer MEDICARE, SELFPAY ==
--- NOTE | 2022-10-09 09:39 | XR_ITS ---
FINAL REPORT CLINICAL HISTORY: on amiodarone, COPD routine f/u FINDINGS: Two views of the chest were obtained. The heart size and pulmonary vascularity are within normal limits. The mediastinum is normal. The lungs are hyperinflated consistent with COPD. There is no pneumothorax. The bony thorax is intact. IMPRESSION: No acute cardiopulmonary process. Reviewed, Interpreted and Dictated by Gianluca Llamas III, MD Transcribed by Yajaira Young Authenticated and [facility]
[2022-10-09 10:19] LABS: Basophils % 0.6 % (0.1-2.0); Eosinophils # 0.1 K/mm3 (0.0-0.4); Eosinophils % 2.7 % (0.1-12.0); Hematocrit 41.1 % (42.0-52.0); Hemoglobin 12.9 g/dL (14.1-18.0); Lymphocytes # 1.4 K/mm3 (0.7-4.5); Lymphocytes % 32.4 % (10-50); Mean Corpuscular HGB Conc 31.5 g/dL (31.8-35.4); Mean Corpuscular Hemoglobin 29.2 pg (27.0-31.2); Mean Corpuscular Volume 92.7 fl (80-94); Monocytes # 0.5 K/mm3 (0.1-1.0); Monocytes % 10.4 % (1.7-9.3); Neutrophils # 2.4 K/mm3 (1.8-7.8); Neutrophils % 53.9 % (37.0-80.0); Platelet Count 248 K/mm3 (142-424); Red Blood Count 4.44 M/mm3 (4.60-6.20); Red Cell Distribution Width 15.8 % (11.5-17.5); White Blood Count 4.4 K/mm3 (4.8-10.8)
[2022-10-09 10:52] LABS: Alanine Aminotransferase 65 U/L (12-78); Albumin Level 4.1 g/dl (3.5-5.0); Alkaline Phosphatase 112 U/L (38-126); Anion Gap 5.9 mEq/L (5-15); Aspartate Amino Transferase 51 U/L (17-59); Bilirubin,Indirect 0.7 mg/dL (0.0-0.9); Bilirubin,Total 0.7 mg/dl (0.2-1.3); Bilirubin,Unconjugated 0.8 mg/dL (0.0-1.1); Blood Urea Nitrogen 22 mg/dl (9-20); Calcium 8.8 mg/dl (8.4-10.2); Carbon Dioxide 31 mmol/L (22.0-30.0); Chloride 102 mmol/L (98-107); Chol/HDL Ratio 2.2 (1-3.5); Cholesterol 211 mg/dl (140-200); Estimated Glomerular Filt Rate 50 ml/min (>60); GFR (African American) 60 ML/MIN (>60); Glucose 92 mg/dl (74-100); HDL Cholesterol 97 mg/dl (40-60); Potassium 3.9 mmoL/L (3.5-5.1); Sodium 135 mmol/L (136-145); Total Protein,Serum 6.5 g/dl (6.3-8.2); Triglycerides 71 mg/dl (30-150); VLDL Cholesterol 14 mg/dL (0-40)
[2022-10-09 11:04] LABS: Direct LDL Cholesterol 82.35 mg/dL (100-129)
[2022-10-09 11:09] LABS: Free T4 (Free Thyroxine) 1.65 ng/dl (0.78-2.19)
[2022-10-09 11:23] LABS: Thyroid Stimulating Hormone 1.79 uIU/mL (0.465-4.68)
== END ==
PROVIDERS: PCP Family Medicine; Visit Provider Nurse Practitioner
DX: E78.5 Hyperlipidemia, unspecified (principal); I10 Essential (primary) hypertension; I21.4 Non-ST elevation (NSTEMI) myocardial infarction; I25.10 Atherosclerotic heart disease of native coronary artery without angina pectoris; I48.0 Paroxysmal atrial fibrillation; Z79.899 Other long term (current) drug therapy
CPT/HCPCS: 36415; 71046; 80048; 80061; 80076; 83735; 84439; 84443; 85025

== ENCOUNTER → 2022-12-05 14:52 | Outpatient (CLI) | payer MEDICARE, SELFPAY ==
--- NOTE | 2022-12-05 14:56 | XR_ITS ---
FINAL REPORT CLINICAL HISTORY: LOW BACK PAIN COMPARISON: None FINDINGS: LUMBOSACRAL SPINE SERIES Five views of the lumbosacral spine were obtained. There is no fracture present. There is no malalignment. Moderate to severe diffuse degenerative disc disease, most pronounced at L4-5 and L5-S1. Facet arthropathy. IMPRESSION: Multilevel degenerative disc disease, most pronounced at L4-5 and L5-S1. Reviewed, Interpreted and Dictated by Manjinder Scott MD Transcribed by Elsie Alvarado Authenticated and [facility]
== END ==
PROVIDERS: PCP Family Medicine; Visit Provider Nurse Practitioner Family
DX: M54.50 Low back pain, unspecified (principal)
CPT/HCPCS: 72110

== ENCOUNTER → 2022-12-18 08:20 | Outpatient (CLI) | payer MEDICARE, SELFPAY ==
--- NOTE | 2022-12-18 09:16 | CT_ITS ---
FINAL REPORT TECHNIQUE: Axial CT images of the abdomen were obtained with IV contrast only. Coronal reformatted images were also obtained. This study was performed with techniques to keep radiation doses as low as reasonably achievable (ALARA). Individualized dose reduction techniques using automated exposure control or adjustment of mA and/or kV according to the patient''s size were employed. CLINICAL HISTORY: adrenal nodule f/u COMPARISON: 12/11/2021 FINDINGS: The lung bases are clear. The liver parenchyma is homogeneous. There are a few tiny scattered low-attenuation foci too small to accurately characterize but favored to represent benign cysts. The gallbladder is present. The pancreas appears normal. The spleen size is within normal limits. The left adrenal gland is unremarkable. There is a solid nodule in the right adrenal gland which demonstrates a mean attenuation value of 90 Hounsfield units on the postinfusion images. This measures 1.3 cm in diameter. On the prior study, the noninfusion image demonstrated main attenuation value of 25 Hounsfield units. In the kidneys there is a low-attenuation structure in the anterior lower pole of the left kidney measuring 2.2 cm in diameter demonstrating mean attenuation value of 21 Hounsfield units, best seen on image 47 of series 2. There is no evidence of adenopathy. No abnormal fluid collection is seen. There are scattered diverticuli seen in the colon. IMPRESSION: Solid 1.3 cm mass in the right adrenal gland appears to significantly enhance. Delayed phase images were not obtained and washout could not be calculated. 2.2 cm structure left kidney with mean attenuation value of 21 Hounsfield units probably represents complex cyst. However pre and postinfusion evaluation is necessary to fully characterize. Recommend dedicated adrenal/renal protocol pre and postinfusion CT scan to fully characterize right adrenal and left renal lesions. Reviewed, Interpreted and Dictated by Mansoor Lambert MD Transcribed by Elsie Alvarado Authenticated and [facility]
[2022-12-18 09:30] LABS: Blood Urea Nitrogen 10 mg/dl (9-20); Estimated Glomerular Filt Rate 60 ml/min (>60); GFR (African American) 72 ML/MIN (>60)
== END ==
PROVIDERS: Internal Medicine; PCP Family Medicine; Visit Provider Nurse Practitioner
DX: E27.8 Other specified disorders of adrenal gland (principal); I25.10 Atherosclerotic heart disease of native coronary artery without angina pectoris
CPT/HCPCS: 36415; 74160; 82565; 84520; Q9967

== ENCOUNTER → 2023-02-19 11:03 | Outpatient (CLI) | payer MEDICARE, SELFPAY ==
--- NOTE | 2023-02-19 11:06 | XR_ITS ---
FINAL REPORT CLINICAL HISTORY: s/p CABG COMPARISON: 10/09/2022 FINDINGS: TWO-VIEW CHEST There is mild cardiomegaly. The patient is status post median sternotomy. There are small to moderate bilateral effusions, new since prior. There is overlying atelectasis. There is no pneumothorax. IMPRESSION: Bilateral pleural effusions with overlying atelectasis. Reviewed, Interpreted and Dictated by Mansoor Lambert MD Transcribed by Mily Infante Authenticated and [facility]
[2023-02-19 12:02] LABS: Basophils % 0.1 % (0.1-2.0); Eosinophils # 0.1 K/mm3 (0.0-0.4); Eosinophils % 1.2 % (0.1-12.0); Hematocrit 35.6 % (42.0-52.0); Lymphocytes # 1.1 K/mm3 (0.7-4.5); Lymphocytes % 18.3 % (10-50); Mean Corpuscular Hemoglobin 27.9 pg (27.0-31.2); Mean Corpuscular Volume 90.2 fl (80-94); Mean Platelet Volume 7.7 fl (7.4-10.4); Monocytes # 0.6 K/mm3 (0.1-1.0); Monocytes % 9.8 % (1.7-9.3); Neutrophils # 4.4 K/mm3 (1.8-7.8); Neutrophils % 70.6 % (37.0-80.0); Platelet Count 403 K/mm3 (142-424); Red Blood Count 3.94 M/mm3 (4.60-6.20); Red Cell Distribution Width 18.7 % (11.5-17.5); White Blood Count 6.2 K/mm3 (4.8-10.8)
[2023-02-19 13:02] LABS: Anion Gap 16.8 mEq/L (5-15); Blood Urea Nitrogen 14 mg/dl (9-20); Calcium 8.8 mg/dl (8.4-10.2); Carbon Dioxide 29 mmol/L (22.0-30.0); Chloride 101 mmol/L (98-107); Estimated Glomerular Filt Rate 60 ml/min (>60); GFR (African American) 72 ML/MIN (>60); Glucose 100 mg/dl (74-100); Potassium 3.8 mmoL/L (3.5-5.1); Sodium 143 mmol/L (136-145)
[2023-02-19 13:11] LABS: NT Pro Brain Natriuretic Pep. 481 pg/mL (0-125)
== END ==
PROVIDERS: PCP Family Medicine; Visit Provider Physician Assistant
DX: E27.8 Other specified disorders of adrenal gland (principal); E78.5 Hyperlipidemia, unspecified; I10 Essential (primary) hypertension; I21.4 Non-ST elevation (NSTEMI) myocardial infarction; I25.10 Atherosclerotic heart disease of native coronary artery without angina pectoris; I48.0 Paroxysmal atrial fibrillation; R53.83 Other fatigue; Z95.1 Presence of aortocoronary bypass graft
CPT/HCPCS: 36415; 71046; 80048; 83880; 85025

== ENCOUNTER 2023-03-14 10:35 | Outpatient (RCR) | payer MEDICARE, SELFPAY | END 2023-03-14 12:00 | disposition home or self-care (01) | LOC: PT 10:35 | PROVIDERS: Visit Provider Physician Assistant | DX: I25.810 Atherosclerosis of coronary artery bypass graft(s) without angina pectoris (principal); Z95.1 Presence of aortocoronary bypass graft ==

== ENCOUNTER → 2023-04-23 08:39 | Outpatient (CLI) | payer MEDICARE, SELFPAY ==
--- NOTE | 2023-04-23 08:45 | CA_ITS ---
APPROVED REPORT EXAM: Comprehensive 2D, Doppler, and color-flow Echocardiogram Manager Special Events: Vickie Astudillo RT(R) Ht: 5 ft 6 in Wt: 171lbs BSA: 1.87 BP: 123/66 mmHg Indications: CAD, S/P CABG 01/2023, NSTEMI, edema, HTN, SOB, hyperlipidemia, cardioverted 11/2021 2D Dimensions LVOT 1.96 cm (M/F) 1.5-2.5 LVEF (Sidhu's) 58.20 % M: 52 - 72 LV Volume 112.60 mL M: 62 - 150 LV Volume Index 60.21 mL/m2 M: 34 - 74 LA Volume 28.30 mL LA Volume Index 15.13 mL/m2 (M/F) 16-34 M-Mode Dimensions RVDd 2.39 cm (0.9-2.6) LA Diam 4.12 cm (1.9-4.0) LVDd 5.46 cm (3.5-5.7) Ao Diam 2.90 cm (2.0-3.7) LVDs 4.28 cm (3.5-5.7) IVSd 0.80 cm (0.6-1.1) PWd 0.80 cm (0.6-1.1) EF (Teich) 43.30% FS 21.60% EDV (Teich) 145.00 mL ESV (Teich) 82.20 mL LV Diastology MED E' 4.90 (< 7 cm/sec) LAT E' 8.10 (<10 cm/sec) Tricuspid Valve TR P. Velocity 225.00 cm/s RAP Estimate 10.00 mmHg RVSP 30.20 mmHg Left Ventricle The left ventricle is normal size. The left ventricular systolic function is normal. The left ventricular ejection fraction is within the normal range. Proximal septal thickening is noted. There is normal LV segmental wall motion. The left ventricular diastolic function is normal. LVEF is 55%. Right Ventricle The right ventricle is mildly dilated. The right ventricular systolic function is normal. Atria The left atrium size is normal. The right atrium size is normal. There is no Doppler evidence of interatrial shunt. Aortic Valve The aortic valve is mildly thickened. There is no aortic valvular stenosis. Trace aortic regurgitation. Mitral Valve Mild mitral annular calcification. The mitral valve leaflets are mildly thickened. No evidence of mitral valve stenosis. Mild mitral regurgitation. The mitral regurgitation jet is eccentric and posteriorly directed. Tricuspid Valve The tricuspid valve leaflets are thin and pliable. Mild tricuspid regurgitation. RVSP is normal. Pulmonic Valve The pulmonary valve is normal in structure. Trace pulmonic regurgitation. Great Vessels The aortic root is normal in size. The ascending aorta is normal in size. IVC is normal in size and collapses >50% with inspiration. Pericardium There is no pericardial effusion. Other Information Study Quality: Fair Conclusion Normal biventricular systolic function. Mild RV dilatation. Mild MR, TR Electronically signed by : Nikki Pérez MD 04/23/2023 21:11:45
== END ==
PROVIDERS: PCP Family Medicine; Visit Provider Physician Assistant
DX: I25.10 Atherosclerotic heart disease of native coronary artery without angina pectoris (principal); I10 Essential (primary) hypertension; I21.4 Non-ST elevation (NSTEMI) myocardial infarction; I48.0 Paroxysmal atrial fibrillation; Z95.1 Presence of aortocoronary bypass graft; E78.5 Hyperlipidemia, unspecified; E27.8 Other specified disorders of adrenal gland; R53.83 Other fatigue
CPT/HCPCS: 93306

== ENCOUNTER 2024-01-12 11:36 | Outpatient (CLI) | payer MEDICARE, SELFPAY ==
[2024-01-12 12:45] LABS: Blood Urea Nitrogen 19 mg/dl (9-20); Estimated Glomerular Filt Rate 73 ml/min (>60); GFR (African American) 89 ML/MIN (>60)
[2024-01-13 06:12] LABS: Sex Hormone Binding Globulin 51.7 nmol/L (19.3-76.4)
[2024-01-13 09:03] LABS: PSA, Free 0.07 ng/mL; Prostate Specific Ag 0.5 ng/mL (0.0-4.0); Testosterone,Total 108 ng/dL (264-916)
== END 2024-01-12 23:59 | disposition home or self-care (01) ==
LOC: LAB 11:38
PROVIDERS: PCP Family Medicine; Visit Provider Urology
DX: E27.8 Other specified disorders of adrenal gland (principal); N28.1 Cyst of kidney, acquired; R97.21 Rising PSA following treatment for malignant neoplasm of prostate
CPT/HCPCS: 36415; 82565; 84153; 84154; 84270; 84403; 84520

== ENCOUNTER 2024-01-26 09:05 | Outpatient (CLI) | payer MEDICARE, SELFPAY ==
--- NOTE | 2024-01-26 09:15 | CT_ITS ---
FINAL REPORT TECHNIQUE: Pre-and postcontrast axial imaging of the abdomen and pelvis was obtained.This study was performed with techniques to keep radiation doses as low as reasonably achievable, (ALARA). Individualized dose reduction technique using automated exposure control or adjustment of mA and/or kV according to the patient's size were employed. CLINICAL HISTORY: adrenal/renal cyst COMPARISON: 12/18/2022 FINDINGS: The lung bases are clear. Fatty infiltration of the liver is present. The gallbladder is present. The spleen, left adrenal gland, and pancreas are unremarkable. There is a stable right adrenal nodule again seen, measuring less than 10 Hounsfield units precontrast-enhancement most consistent with an adenoma. There is no hydronephrosis. On precontrast imaging, no renal stones are identified. There is a 2 cm hypodense lesion in the lower pole of the left kidney, which measures 22 Hounsfield units precontrast-enhancement and 33 Hounsfield units postcontrast enhancement, suggesting mild enhancement. There are several additional bilateral renal lesions present. There are 2 small lesions in the upper pole of the left kidney which do not enhance, favor hemorrhagic cysts. There are several foci of abnormal density in the right kidney that are too small to characterize. Abdominal GI tract is unremarkable. There is no lymphadenopathy or ascites. The pelvic organs and pelvic portions of the GI tract, including the appendix, are within normal limits. There is abnormal attenuation in the presacral space, which may represent postoperative change or changes related to therapy. There is no lymphadenopathy or ascites. No acute osseous abnormalities identified. IMPRESSION: The right adrenal nodule noted on the prior CT of November 2022 remains present and is stable in appearance, with precontrast imaging most consistent with an adrenal adenoma. There is a 2 cm hypodense lesion in the lower pole of the left kidney, which suggest mild enhancement after contrast administration. A small neoplasm is suspected, and close follow-up is recommended. Reviewed, Interpreted and Dictated by Ashanti Anderson MD Transcribed by Rosa Isela Diaz Authenticated and [facility]
== END 2024-01-26 23:59 | disposition home or self-care (01) ==
LOC: RAD 09:08
PROVIDERS: PCP Family Medicine; Visit Provider Urology
DX: E27.8 Other specified disorders of adrenal gland (principal); N28.1 Cyst of kidney, acquired
CPT/HCPCS: 74178; Q9967

== ENCOUNTER 2024-02-16 15:48 | Outpatient (CLI) | payer MEDICARE, SELFPAY ==
[2024-02-16 15:44] LABS: Microscopic, Urine URINE MICROSCOPIC (MICROSCOPIC)
[2024-02-16 16:54] LABS: Appearance,Urine CLEAR (Clear); Bilirubin,Urine Negative (Negative); Blood, Urine 3+ (Negative); Color,Urine YELLOW (Yellow); Glucose,Urine (UA) Negative (Negative); Ketones,Urine Negative (Negative); Leukocyte Esterase,Urine 1+ (Negative); Nitrate,Urine POSITIVE (Negative); Protein,Urine Negative (Negative); Urobilinogen,Urine 0.2 EU/dl (0.2)
[2024-02-16 17:19] LABS: Bacteria,Urine 3+ /lpf
== END 2024-02-16 23:59 | disposition home or self-care (01) ==
LOC: LAB.DROPOF 15:48
PROVIDERS: PCP Urology; Visit Provider Urology
DX: N39.0 Urinary tract infection, site not specified (principal); B96.20 Unspecified Escherichia coli [E. coli] as the cause of diseases classified elsewhere
CPT/HCPCS: 81001; 87086; 87088; 87186

== ENCOUNTER 2024-06-30 10:56 | Emergency (ER) | payer MEDICARE, SELFPAY ==
--- NOTE | 2024-06-30 11:02 | XR_ITS ---
PROCEDURE INFORMATION: Exam: XR Chest Exam date and time: 06/30/2024 11:00 AM Age: 74 years old Clinical indication: Shortness of breath; Additional info: SOA TECHNIQUE: Imaging protocol: Radiologic exam of the chest. Views: 2 views. COMPARISON: CR XR CHEST 2V 02/19/2023 11:13 AM FINDINGS: Lungs: Unremarkable. No consolidation. Pleural spaces: Unremarkable. No pleural effusion. No pneumothorax. Heart/Mediastinum: The heart is normal in size. Prior CABG. Prior clipping of the atrial appendage. Bones/joints: Prior median sternotomy. Mild chronic degenerative changes throughout the visualized spine. IMPRESSION: Radiographic evidence of acute cardiopulmonary disease.
[2024-06-30 11:58] VITALS: BP 164/82; PULSE 92; RESP 20; TEMP 36.9; O2SAT 94; BMI 29.7
--- NOTE | 2024-06-30 12:09 | EXP.UTC ---
Discharge Plan Disposition Patient Disposition: Home, Self-Care Condition: Good Prescriptions Prescriptions: New cefdinir 300 mg capsule 300 mg PO BID Qty: 20 0RF furosemide [Lasix] 40 mg tablet 40 mg PO DAILY 3 Days Qty: 3 0RF benzonatate 100 mg capsule 100 mg PO TIDP PRN (Reason: Cough) Qty: 30 0RF No Action albuterol sulfate 90 mcg/actuation HFA aerosol inhaler 2 puff IH Q4HP PRN (Reason: Shortness Of Breath) Patient Comments: INHALE 2 PUFFS BY MOUTH EVERY 4 HOURS NEEDED Trelegy Ellipta 200-62.5-25 mcg blister with device 1 inh inhalation DAILY Patient Comments: INHALE 1 PUFF BY MOUTH ONCE DAILY irbesartan 75 mg tablet 75 mg PO DAILY Qty: 90 3RF tamsulosin 0.4 mg capsule 0.4 mg PO DAILY 90 Days Qty: 90 1RF levofloxacin 500 mg tablet 500 mg PO DAILY 5 Days Qty: 5 0RF potassium chloride 20 mEq tablet,ER particles/crystals 40 meq PO DAILY PRN Patient Comments: TAKE 1 TABLET BY MOUTH ONCE DAILY aspirin 325 mg tablet,delayed release (DR/EC) 325 mg PO DAILY Patient Comments: TAKE 1 TABLET BY MOUTH ONCE DAILY nitroglycerin 0.4 mg tablet, sublingual 0.4 mg sublingual Q5-15M PRN Dupixent Pen 300 mg/2 mL pen injector 300 mg SQ Q2W furosemide 40 mg tablet 40 mg PO .m w fr Patient Comments: TAKE 1 TABLET BY MOUTH ONCE DAILY NEEDED FOR INCREASED SWELLING IN LEGS, OR INCREASED SHORTNESS OF BREATH metoprolol tartrate 25 mg tablet 12.5 mg PO BID Qty: 60 4RF atorvastatin 40 mg tablet See Rx Instructions .ROUTE .COMPLEX Qty: 90 3RF Dose Instruction: Take 1 tablet by mouth once daily Rx Instructions: Take 1 tablet by mouth once daily cetirizine 10 MG tablet 10 mg PO DAILY Referrals Follow up/Referrals: Tia Warren MD [Primary Care Provider] - See instructions Activity Restrictions/Add. Instructions Additional Instructions/Restrictions: Drink plenty of fluids. Take tylenol for pain or fever. Take the medications as directed. Follow up with your regular doctor. Call them in the morning to let them know what's going on with you and to get an follow up appointment. GO TO THE ER FOR ANY WORSENING SYMPTOMS Clinical Impressions Clinical Impression: Bronchitis Instructions Patient Instructions: DI for Acute Bronchitis, Furosemide Print Language Print Language: Bulgarian Discharge ED Provider: Marcelo Box [facility] [place] HPI General Stated complaint: soa, pain in left ribs Mode of Arrival: Ambulatory Source of Information: Patient Time Seen by Provider: 06/30/24 11:58 Description of Symptoms (Recalled from Triage Doc. by RN): SOB, PAIN IN LEFT UPPER ABD HEENT Symptoms (Recalled from RN notes): No Resp Symptoms (Recalled from RN notes): Yes Skin Symptoms (Recalled from RN notes): No MS Symptoms (Recalled from RN notes): No Functional Status (Recalled from RN notes): WNL Related Data Home Medications ?Medication ?Instructions ?Recorded ?Confirmed albuterol sulfate 90 mcg/actuation 2 puff inhalation Q4HP PRN 10/18/20 06/07/24 aerosol inhaler Shortness Of Breath cetirizine 10 mg tablet 10 mg PO DAILY Allergy symptoms 12/11/21 06/07/24 fluticasone fur. 200 mcg-umeclid 1 inh inhalation DAILY 01/08/23 06/07/24 62.5 mcg-vilant 25 mcg inhalat.powder (Trelegy Ellipta) aspirin 325 mg tablet,delayed 325 mg PO DAILY 02/19/23 06/07/24 release dupilumab 300 mg/2 mL subcutaneous 300 mg SQ Q2W 02/19/23 06/07/24 pen injector (Dupixent) nitroglycerin 0.4 mg sublingual 0.4 mg sublingual Q5-15M PRN 02/19/23 06/07/24 tablet potassium chloride 20 mEq 40 meq PO DAILY PRN 04/23/23 06/07/24 tablet,extended release(part/cryst) furosemide 40 mg tablet 40 mg PO .m w fr 11/27/23 06/07/24 Previous Rx's ?Medication ?Instructions ?Recorded irbesartan 75 mg tablet 75 mg PO DAILY #90 tabs 11/27/23 metoprolol tartrate 25 mg tablet 12.5 mg (1/2 x 25 mg) PO BID #60 01/06/24 tabs atorvastatin 40 mg tablet See Rx Instructions .Route 01/08/24 .COMPLEX #90 tabs levofloxacin 500 mg tablet 500 mg PO DAILY 5 days #5 tabs 02/16/24 tamsulosin 0.4 mg capsule 0.4 mg PO DAILY 90 days #90 caps 02/16/24 benzonatate 100 mg capsule 100 mg PO TIDP PRN Cough #30 caps 06/30/24 cefdinir 300 mg capsule 300 mg PO BID #20 caps 06/30/24 furosemide 40 mg tablet (Lasix) 40 mg PO DAILY 3 days #3 tabs 06/30/24 Allergies Allergy/AdvReac Type Severity Reaction Status Date / Time No Known Allergies Allergy Verified 06/07/24 08:59 Worker's Comp Is this a Worker's Comp case?: No [facility] Disclaimer: The information contained in this section may have been updated after the patient was seen, as this information can be updated by other users. Medical History Renal cyst, left Adrenal nodule On amiodarone therapy Near syncope Fatigue Abnormal cardiovascular stress test Sinus bradycardia Melena Surgical History S/P CABG (coronary artery bypass graft) S/P CABG x 2 Social History Smoking Status: Never smoker alcohol intake: current alcohol intake frequency: holidays/special occasions only substance use type: denies use current occupational status: retired Travel in the last 8 weeks: Inside the [place] household members: spouse housing: house ROS Obtained: Yes All systems reviewed & no additional complaints except as documented Constitutional Constitutional: Reports poor appetite Eyes Eyes: Reports system reviewed and no additional complaints, except as documented ENT Ears, Nose, Mouth, and Throat: Reports as per HPI Cardiovascular Cardiovascular: Reports system reviewed and no additional complaints, except as documented and Denies chest pain Respiratory Respiratory: Denies shortness of breath, Reports chest congestion, Reports cough, Denies stridor and Denies wheezing Gastrointestinal Gastrointestingal: Reports system reviewed and no additional complaints, except as documented; Denies abdominal pain, diarrhea or vomiting Musculoskeletal Musculoskeletal: Reports system reviewed and no additional complaints, except as documented and Denies arthralgias Integumentary/Breasts Skin/Breast: Reports system reviewed and no additional complaints, except as documented and Denies rash Neurologic Neurologic: Denies paresthesias Allergic/Immunologic Allergic/Immunologic: Denies wheezing Physical Exam General General appearance: alert and in no apparent distress Head Head exam: atraumatic, normocephalic and normal inspection Eye Eye exam: Present normal appearance, PERRL and EOMI ENT ENT exam: Present normal exam, normal oropharynx, mucous membranes moist, TM's normal bilaterally and normal external ear exam Neck Neck exam: Present normal inspection, full ROM and trachea midline; Absent meningismus or lymphadenopathy Chest Chest inspection: Present normal inspection and symmetric chest wall rise; Absent tenderness Respiratory Respiratory exam: Present normal lung sounds bilaterally; Absent respiratory distress Cardiovascular Cardiovascular exam: Present regular rate and normal rhythm; Absent JVD Abdominal Exam Abdominal exam: Present soft and normal bowel sounds; Absent distention, tenderness or guarding Extremities Exam Extremities exam: Present normal inspection, full ROM and normal capillary refill; Absent calf tenderness Back Exam Back exam: Present normal inspection; Absent tenderness Neurological Exam Neurological exam: Present alert and oriented X3 Psychiatric Psychiatric exam: Present normal affect and normal mood Skin Skin exam: Present warm, dry, intact and normal color Lymphatic Lymphatic Findings: no adenopathy Medical Decision Making Medical Records Medical records reviewed: No I reviewed the patient's medical records. Screening: Per USPSTF and CDC recommendations, given the prevalence of disease in our region, it is our hospital?s policy to screen for HIV and viral Hepatitis for all patients aged 18 and over and those with ongoing risk factors. [place] Inquiry Pt receiving controlled substance: No Vital Signs: 06/30/24 11:58 Temperature 98.5 F Temperature Source Oral Pulse Rate [Left Brachial] 92 H Respiratory Rate 20 Blood Pressure [Left Arm] 164/82 H Blood Pressure Mean [Left Arm] 109 02 Sat by Pulse Oximetry 94 L Orders (Tests/Meds): ORDERS Category Date Time Status Chest XR 2 view (NOT portable) [XR chest 2V] Stat Exams 06/30/24 11:02 Taken
--- NOTE | 2024-06-30 12:49 | ECG_ITS ---
APPROVED REPORT Exam: Resting ECG HR:88 bpm ECG Measurements Heart Rate 88 AXES OK 101 P 58 QRSd 78 QRS -26 QT 329 T 27 QTc 375 Conclusion SINUS RHYTHM WITH SHORT OK INTERVAL BORDERLINE LEFT AXIS DEVIATION [QRS AXIS < -20] MODERATE T-WAVE ABNORMALITY, CONSIDER LATERAL ISCHEMIA [-0.1+ mV T-WAVE IN I/aVL/V5/V6] ABNORMAL ECG UNCONFIRMED REPORT Electronically signed by : VINOD GONZALEZ, 07/02/2024 06:52:02
[2024-06-30] MEDS: FUROSEMIDE 40 MG TABLET PO (13:30)
[2024-06-30 13:41] VITALS: BP 164/82; PULSE 92; RESP 20; TEMP 36.9
== END 2024-06-30 13:43 | disposition home or self-care (01) ==
PROVIDERS: Emergency Provider Nurse Practitioner Family; PCP Family Medicine
DX: J20.9 Acute bronchitis, unspecified (principal); R06.02 Shortness of breath; R07.89 Other chest pain; R63.8 Other symptoms and signs concerning food and fluid intake; R05.9 Cough, unspecified
CPT/HCPCS: 71046; 93005; 99212; G0381

== ENCOUNTER 2024-07-08 12:28 | Outpatient (CLI) | payer MEDICARE, SELFPAY | END 2024-07-08 23:59 | disposition home or self-care (01) | LOC: RT 12:29 | PROVIDERS: PCP Family Medicine; Visit Provider Family Medicine | DX: R55 Syncope and collapse (principal); R53.1 Weakness | CPT/HCPCS: 93225; 93227 ==

== ENCOUNTER 2025-01-17 20:40 | Emergency (ER) | payer MEDICARE, SELFPAY ==
[2025-01-17] VITALS (9 sets, daily range): BP systolic 165–194; BP diastolic 84–95; PULSE 47–63; RESP 14–24; TEMP 35.6–36.3; O2SAT 95–97; BMI 30.2
--- NOTE | 2025-01-17 20:48 | ECG_ITS ---
APPROVED REPORT Exam: Resting ECG HR:47 bpm ECG Measurements Heart Rate 47 AXES ID 139 P 68 QRSd 103 QRS -34 QT 470 T -12 QTc 432 Conclusion SINUS BRADYCARDIA LEFT AXIS DEVIATION [QRS AXIS < -30] NONSPECIFIC T-WAVE ABNORMALITY ABNORMAL ECG UNCONFIRMED REPORT Electronically signed by : VINOD GONZALEZ, 01/19/2025 01:21:58
--- NOTE | 2025-01-17 20:53 | HMH.EDGENADL ---
Discharge Plan Disposition Patient Disposition: Home, Self-Care Prescriptions Prescriptions: No Action albuterol sulfate 90 mcg/actuation HFA aerosol inhaler 2 puff IH Q4HP PRN (Reason: Shortness Of Breath) Patient Comments: INHALE 2 PUFFS BY MOUTH EVERY 4 HOURS NEEDED Maria Guadalupe Ellipta 200-62.5-25 mcg blister with device 1 inh inhalation DAILY Patient Comments: INHALE 1 PUFF BY MOUTH ONCE DAILY tamsulosin 0.4 mg capsule 0.4 mg PO DAILY 90 Days Qty: 90 1RF furosemide [Lasix] 40 mg tablet 40 mg PO DAILY PRN ferrous sulfate [FeroSul] 325 mg (65 mg iron) tablet 325 mg PO DIRECTED Patient Comments: TAKE 1 TABLET BY MOUTH THREE TIMES A WEEK Rx Instructions: mon, wed, fri potassium chloride 20 mEq tablet,ER particles/crystals 40 meq PO DAILY PRN Patient Comments: TAKE 1 TABLET BY MOUTH ONCE DAILY aspirin 325 mg tablet,delayed release (DR/EC) 325 mg PO DAILY Patient Comments: TAKE 1 TABLET BY MOUTH ONCE DAILY nitroglycerin 0.4 mg tablet, sublingual 0.4 mg sublingual Q5-15M PRN Dupixent Pen 300 mg/2 mL pen injector 300 mg SQ Q2W atorvastatin 40 mg tablet See Rx Instructions .ROUTE .COMPLEX Qty: 90 3RF Dose Instruction: Take 1 tablet by mouth once daily Rx Instructions: Take 1 tablet by mouth once daily metoprolol tartrate 25 mg tablet 12.5 mg PO BID Qty: 60 4RF irbesartan 75 mg tablet 75 mg PO DAILY Qty: 90 3RF cetirizine 10 MG tablet 10 mg PO DAILY Referrals Follow up/Referrals: Tia Warren MD [Primary Care Provider, Medical] - See instructions Activity Restrictions/Add. Instructions Additional Instructions/Restrictions: Please follow-up with your primary care provider. Please return to the emergency department if you develop any new or worsening symptoms or become concerned for your health. Clinical Impressions Clinical Impression: Enteritis Instructions Patient Instructions: DI for Acute Abdominal Pain Print Language Print Language: Chinese Discharge ED Provider: Emir Persaud General Adult HPI <Emir Persaud MD - Last Filed: 01/17/25 23:16> General Chief complaint: Abdominal Pain Stated complaint: sweating,vomiting,stomach pain Time Seen by Provider: 01/17/25 20:52 History of Present Illness HPI narrative: Patient is 74-year-old male with past medical history of previous CABG, previous atrial fibrillation, hypertension who presents emergency department for evaluation of vomiting and sweating. Patient ate sauerkraut and meat for dinner and approximately 30 minutes later had uncontrollable vomiting and sweating. No abdominal pain, no chest pain. He is accompanied by his who helps provide the history as patient is vomiting at bedside but patient does deny pain. Patient was recently started on his beta-patricia again. No other acute complaints at this time Please note that above description of symptoms, in this electronic medical record under categorization of recalled from ER triage doctor by RN are reflective of an initial nursing assessment, however, is not reflective of my full history and physical exam that was personally taken and clarified. Consequentially, this preceding description of symptoms, which may include the patient's categorized chief complaint in the EMR, do not reflect my personal clinical impression, and the ultimate description of history of present illness and patient stated complaints should be deferred to this section of the note. Unless stated otherwise or congruent with this section of the note, additional signs, symptoms, or incongruence should be interpreted as inaccurate with my clinical impression. Related Data Home Medications ?Medication ?Instructions ?Recorded ?Confirmed albuterol sulfate 90 mcg/actuation 2 puff inhalation Q4HP PRN 10/18/20 12/08/24 aerosol inhaler Shortness Of Breath cetirizine 10 mg tablet 10 mg PO DAILY Allergy symptoms 12/11/21 12/08/24 fluticasone fur. 200 mcg-umeclid 1 inh inhalation DAILY 01/08/23 12/08/24 62.5 mcg-vilant 25 mcg inhalat.powder (Trelegy Ellipta) aspirin 325 mg tablet,delayed 325 mg PO DAILY 02/19/23 12/08/24 release dupilumab 300 mg/2 mL subcutaneous 300 mg SQ Q2W 02/19/23 12/08/24 pen injector (Dupixent) nitroglycerin 0.4 mg sublingual 0.4 mg sublingual Q5-15M PRN 02/19/23 12/08/24 tablet potassium chloride 20 mEq 40 meq PO DAILY PRN 04/23/23 12/08/24 tablet,extended release(part/cryst) ferrous sulfate 325 mg (65 mg 325 mg PO DIRECTED 12/08/24 12/08/24 iron) tablet (FeroSul) furosemide 40 mg tablet (Lasix) 40 mg PO DAILY PRN 12/08/24 Previous Rx's ?Medication ?Instructions ?Recorded tamsulosin 0.4 mg capsule 0.4 mg PO DAILY 90 days #90 caps 02/16/24 atorvastatin 40 mg tablet See Rx Instructions .Route 01/13/25 .COMPLEX #90 tabs irbesartan 75 mg tablet 75 mg PO DAILY #90 tabs 01/13/25 metoprolol tartrate 25 mg tablet 12.5 mg (1/2 x 25 mg) PO BID #60 01/13/25 tabs Allergies Allergy/AdvReac Type Severity Reaction Status Date / Time No Known Allergies Allergy Verified 12/08/24 08:44 [facility] <Emir Persaud MD - Last Filed: 01/17/25 23:16> [facility] Disclaimer: The information contained in this section may have been updated after the patient was seen, as this information can be updated by other users. Medical History (Updated 01/18/25 @ 00:46 by Agusto Palomares MD) PAF (paroxysmal atrial fibrillation) Atrial fibrillation with RVR NSTEMI (non-ST elevated myocardial infarction) Hypertension Hyperlipidemia Asthma CAD (coronary artery disease) SOB (shortness of breath) on exertion Renal cyst, left Adrenal nodule On amiodarone therapy Near syncope Fatigue Abnormal cardiovascular stress test Sinus bradycardia Melena Surgical History S/P CABG (coronary artery bypass graft) S/P CABG x 2 Social History Smoking Status: Never smoker alcohol intake: current alcohol intake frequency: holidays/special occasions only substance use type: denies use current occupational status: retired Travel in the last 8 weeks?: Inside the [place] household members: spouse housing: house Have you lived/traveled outside [place] in past 30 days?: No Contact w/someone who lives/traveled outside US past 30 days?: No Exposure to someone with infectious disease in past 14 days?: No Do you have a fever (greater than 100.4 F or 38 C)?: No Have you tested positive for COVID-19?: No Exposed to someone with COVID-19 in past 14 days?: No Do you have a sore throat?: No Do you have a cough?: No Do you have any weakness?: No Do you have any diarrhea?: No Are you experiencing any unusual bleeding?: No Do you have any muscle aches/pain?: No Do you have any abdominal pain?: Yes Are you experiencing loss of taste or smell?: No Other Medical History Have you received the Flu Vaccine for this season: No Have you received the Pneumonia Vaccine: Yes <Emir Persaud MD - Last Filed: 01/17/25 23:16> ROS Obtained: Yes Systems reviewed as appropriate & no additional complaints except as documented Physical Exam <Emir Persaud MD - Last Filed: 01/17/25 23:16> General General appearance: alert and in distress Comment: Diaphoretic Head Head exam: atraumatic and normocephalic Eye Eye exam: Present PERRL and EOMI ENT ENT exam: Present mucous membranes moist Neck Neck exam: Present normal inspection Chest Chest inspection: Present normal inspection and symmetric chest wall rise Respiratory Respiratory exam: Present normal lung sounds bilaterally; Absent respiratory distress Cardiovascular Cardiovascular exam: Present regular rate and normal rhythm Abdominal Exam Abdominal exam: Present soft; Absent tenderness, guarding or rebound Extremities Exam Extremities exam: Present normal inspection Neurological Exam Neurological exam: Present alert Psychiatric Psychiatric exam: Present normal affect Skin Skin exam: Present warm and dry Medical Decision Making <Emir Persaud MD - Last Filed: 01/17/25 23:16> Medical Records Screening: Per USPSTF and CDC recommendations, given the prevalence of disease in our region, it is our hospital?s policy to screen for HIV and viral Hepatitis for all patients aged 18 and over and those with ongoing risk factors. Porter Inquiry Pt receiving controlled substance: No Vital Signs: 01/17/25 21:01 01/17/25 21:31 01/17/25 22:00 Temperature 96.4 F L Temperature Source Oral Pulse Rate 47 L 54 L Pulse Rate [Left] 59 L Respiratory Rate 14 21 20 Blood Pressure 194/92 H Blood Pressure [Right Arm] 191/95 H Blood Pressure Mean Blood Pressure Mean [Right Arm] 127 Blood Pressure Source [Right Arm] Automatic Cuff Blood Pressure Position [Right Arm] Sitting 02 Sat by Pulse Oximetry 97 95 95 Oxygen Delivery Method Room Air 01/17/25 22:01 01/17/25 22:01 01/17/25 22:30 Temperature 96.0 F L Temperature Source Rectal Pulse Rate 53 L 59 L Pulse Rate [Left] Respiratory Rate 19 24 Blood Pressure 179/88 H Blood Pressure [Right Arm] Blood Pressure Mean 103 Blood Pressure Mean [Right Arm] Blood Pressure Source [Right Arm] Blood Pressure Position [Right Arm] 02 Sat by Pulse Oximetry 95 95 Oxygen Delivery Method 01/17/25 22:33 01/17/25 23:21 01/17/25 23:45 Temperature 97.3 F L Temperature Source Oral Pulse Rate 63 57 L 59 L Pulse Rate [Left] Respiratory Rate 20 20 18 Blood Pressure 191/88 H 165/86 H Blood Pressure [Right Arm] Blood Pressure Mean 120 112 Blood Pressure Mean [Right Arm] Blood Pressure Source [Right Arm] Blood Pressure Position [Right Arm] 02 Sat by Pulse Oximetry 97 95 96 Oxygen Delivery Method Lab Data Lab Results 01/17/25 20:58: Sodium 139, Potassium 4.0, Chloride 109 H, Carbon Dioxide 22, Anion Gap 12.0, BUN 14, Creatinine 1.00, Estimated Creat Clear 79, Estimated GFR 73, Est GFR ( Amer) 89, Glucose 134 H, Calcium 9.3, Total Bilirubin 1.0, AST 34, ALT 24, Alkaline Phosphatase 114, Troponin I < 0.01, Total Protein 7.6, Albumin 4.4, Globulin 3.2, Albumin/Globulin Ratio 1.4, Lipase 146, TSH 2.87, Free T4 1.08 01/17/25 21:04: WBC 6.1, RBC 4.28 L, Hgb 14.3, Hct 42.5, MCV 99.3 H, MCH 33.4 H, MCHC 33.6, RDW 13.0, Plt Count 190, MPV 10.0, Neut % (Auto) 56.8, Lymph % (Auto) 30.1, [place] % (Auto) 10.0 H, Eos % (Auto) 2.0, Baso % (Auto) 0.8, Neut # (Auto) 3.5, Lymph # (Auto) 1.8, [place] # (Auto) 0.6, Eos # (Auto) 0.1, Baso # (Auto) 0.1, HCV Ab FOZIA w/Rflx PCR Qn Negative, HIV Ag/Ab Combo Qual Negative 01/17/25 23:40: Urine Color Yellow, Urine Appearance Clear, Urine pH 7.0, Ur Specific [place] 1.010, Urine Protein Negative, Urine Glucose (UA) Negative, Urine Ketones Negative, Urine Blood Negative, Urine Nitrate Negative, Urine Bilirubin Negative, Urine Urobilinogen 0.2, Ur Leukocyte Esterase Negative, Urine RBC None, Urine WBC Occasional, Ur Squamous Epith Cells Occasional, Urine Bacteria Trace 01/17/25 21:04 01/17/25 20:58 Orders (Tests/Meds): ED MEDICATIONS Generic Name Dose Route Start Last Admin Trade Name Freq PRN Reason Stop Dose Admin Sodium Chloride 10 ml 01/17/25 23:36 01/17/25 23:37 Sodium Chloride 0.9% 10ml Syr (Rad Only) IV 02/16/25 23:35 10 ml NEEDED PRN Administration Maintain IV Site Discontinued Medications Generic Name Dose Route Start Last Admin Trade Name Freq PRN Reason Stop Dose Admin Lactated Ringer's 1,000 mls @ 999 mls/hr 01/17/25 20:52 01/17/25 21:18 Lactated Ringer's 1000 Ml Bag IV 01/17/25 21:52 999 mls/hr .Q1H1M ONE Administration Iopamidol 75 ml 01/17/25 23:36 01/17/25 23:37 Iopamidol-370 (76%);100ml Bottle IV 01/17/25 23:37 75 ml ONCE ONE Administration Ondansetron HCl 4 mg 01/17/25 20:52 01/17/25 21:19 Ondansetron 4mg/2ml Vial IV 01/17/25 20:53 4 mg ONCE ONE Administration ORDERS Category Date Time Status CT abdomen pelvis w con Stat Cat Scan 01/17/25 22:29 Completed CBC w/Auto Diff [Complete Blood Count Auto Diff] Stat Lab 01/17/25 21:04 Completed CMP [Comprehensive Metabolic Panel] Stat Lab 01/17/25 20:58 Completed Free T4 (Free Thyroxine) Stat Lab 01/17/25 20:58 Completed HIV Combo Stat Lab 01/17/25 21:04 Completed Hepatitis C Ab Qual. W/ RFX Stat Lab 01/17/25 21:04 Completed Lipase Stat Lab 01/17/25 20:58 Completed TSH [Thyroid Stimulating Hormone] Stat Lab 01/17/25 20:58 Completed Trop I [Troponin I] Stat Lab 01/17/25 20:58 Completed UA [Urinalysis and Microscopic] Stat Lab 01/17/25 23:40 Completed Blood Culture Stat Micro 01/17/25 23:18 Received ECG Data Tracing #1: Independently interpreted by me rate is 47, rhythm is regular, axis is leftward deviated, no ST elevation in anatomical contiguous leads, QTc 432 Medical Decision Narrative: In summary patient is 74-year-old male with past medical history described above who presents emergency department for evaluation of nausea, vomiting, diaphoresis. Patient is hemodynamically stable nontoxic-appearing upon arrival, afebrile. There is possible that patient has food poisoning. Differential also includes pancreatitis, atypical ACS, among others. Workup will be conducted with hematologic labs EKG and troponin. CT imaging abdomen pelvis was considered but patient is nontender has no abdominal pain will be deferred at this time. Initial inventions include crystalloid bolus and Zofran. Upon repeat evaluation patient had persistent swelling and had hypothermic temperature on multiple rectal temperatures given this cold infection of the abdomen is a possibility CT imaging of abdomen pelvis will be obtained with IV contrast. Thyroid studies will be obtained. Ultrasound-guided IV anchored by me. CT imaging repeat evaluation pending at time of transfer of care to the oncoming physician, Dr. Palomares. Procedure: Procedure performed was ultrasound-guided IV. Using the linear probe the right brachial vein was cannulated with a long 18-gauge peripheral IV. Vessel cannula was patent. Images were not saved to permanent archive. Patient tolerated procedure well there are no immediate complications. <Agusto Palomares MD - Last Filed: 01/18/25 00:47> Vital Signs: 01/17/25 21:01 01/17/25 21:31 01/17/25 22:00 Temperature 96.4 F L Temperature Source Oral Pulse Rate 47 L 54 L Pulse Rate [Left] 59 L Respiratory Rate 14 21 20 Blood Pressure 194/92 H Blood Pressure [Right Arm] 191/95 H Blood Pressure Mean Blood Pressure Mean [Right Arm] 127 Blood Pressure Source [Right Arm] Automatic Cuff Blood Pressure Position [Right Arm] Sitting 02 Sat by Pulse Oximetry 97 95 95 Oxygen Delivery Method Room Air 01/17/25 22:01 01/17/25 22:01 01/17/25 22:30 Temperature 96.0 F L Temperature Source Rectal Pulse Rate 53 L 59 L Pulse Rate [Left] Respiratory Rate 19 24 Blood Pressure 179/88 H Blood Pressure [Right Arm] Blood Pressure Mean 103 Blood Pressure Mean [Right Arm] Blood Pressure Source [Right Arm] Blood Pressure Position [Right Arm] 02 Sat by Pulse Oximetry 95 95 Oxygen Delivery Method 01/17/25 22:33 01/17/25 23:21 01/17/25 23:45 Temperature 97.3 F L Temperature Source Oral Pulse Rate 63 57 L 59 L Pulse Rate [Left] Respiratory Rate 20 20 18 Blood Pressure 191/88 H 165/86 H Blood Pressure [Right Arm] Blood Pressure Mean 120 112 Blood Pressure Mean [Right Arm] Blood Pressure Source [Right Arm] Blood Pressure Position [Right Arm] 02 Sat by Pulse Oximetry 97 95 96 Oxygen Delivery Method Lab Data Lab Results 01/17/25 20:58: Sodium 139, Potassium 4.0, Chloride 109 H, Carbon Dioxide 22, Anion Gap 12.0, BUN 14, Creatinine 1.00, Estimated Creat Clear 79, Estimated GFR 73, Est GFR ( Amer) 89, Glucose 134 H, Calcium 9.3, Total Bilirubin 1.0, AST 34, ALT 24, Alkaline Phosphatase 114, Troponin I < 0.01, Total Protein 7.6, Albumin 4.4, Globulin 3.2, Albumin/Globulin Ratio 1.4, Lipase 146, TSH 2.87, Free T4 1.08 01/17/25 21:04: WBC 6.1, RBC 4.28 L, Hgb 14.3, Hct 42.5, MCV 99.3 H, MCH 33.4 H, MCHC 33.6, RDW 13.0, Plt Count 190, MPV 10.0, Neut % (Auto) 56.8, Lymph % (Auto) 30.1, [place] % (Auto) 10.0 H, Eos % (Auto) 2.0, Baso % (Auto) 0.8, Neut # (Auto) 3.5, Lymph # (Auto) 1.8, [place] # (Auto) 0.6, Eos # (Auto) 0.1, Baso # (Auto) 0.1, HCV Ab FOZIA w/Rflx PCR Qn Negative, HIV Ag/Ab Combo Qual Negative 01/17/25 23:40: Urine Color Yellow, Urine Appearance Clear, Urine pH 7.0, Ur Specific [place] 1.010, Urine Protein Negative, Urine Glucose (UA) Negative, Urine Ketones Negative, Urine Blood Negative, Urine Nitrate Negative, Urine Bilirubin Negative, Urine Urobilinogen 0.2, Ur Leukocyte Esterase Negative, Urine RBC None, Urine WBC Occasional, Ur Squamous Epith Cells Occasional, Urine Bacteria Trace Orders (Tests/Meds): ED MEDICATIONS Generic Name Dose Route Start Last Admin Trade Name Freodette PRN Reason Stop Dose Admin Sodium Chloride 10 ml 01/17/25 23:36 01/17/25 23:37 Sodium Chloride 0.9% 10ml Syr (Rad Only) IV 02/16/25 23:35 10 ml NEEDED PRN Administration Maintain IV Site Discontinued Medications Generic Name Dose Route Start Last Admin Trade Name Freq PRN Reason Stop Dose Admin Lactated Ringer's 1,000 mls @ 999 mls/hr 01/17/25 20:52 01/17/25 21:18 Lactated Ringer's 1000 Ml Bag IV 01/17/25 21:52 999 mls/hr .Q1H1M ONE Administration Iopamidol 75 ml 01/17/25 23:36 01/17/25 23:37 Iopamidol-370 (76%);100ml Bottle IV 01/17/25 23:37 75 ml ONCE ONE Administration Ondansetron HCl 4 mg 01/17/25 20:52 01/17/25 21:19 Ondansetron 4mg/2ml Vial IV 01/17/25 20:53 4 mg ONCE ONE Administration ORDERS Category Date Time Status CT abdomen pelvis w con Stat Cat Scan 01/17/25 22:29 Completed CBC w/Auto Diff [Complete Blood Count Auto Diff] Stat Lab 01/17/25 21:04 Completed CMP [Comprehensive Metabolic Panel] Stat Lab 01/17/25 20:58 Completed Free T4 (Free Thyroxine) Stat Lab 01/17/25 20:58 Completed HIV Combo Stat Lab 01/17/25 21:04 Completed Hepatitis C Ab Qual. W/ RFX Stat Lab 01/17/25 21:04 Completed Lipase Stat Lab 01/17/25 20:58 Completed TSH [Thyroid Stimulating Hormone] Stat Lab 01/17/25 20:58 Completed Trop I [Troponin I] Stat Lab 01/17/25 20:58 Completed UA [Urinalysis and Microscopic] Stat Lab 01/17/25 23:40 Completed Blood Culture Stat Micro 01/17/25 23:18 Received Medical Decision Narrative: In summary patient is 74-year-old male with past medical history described above who presents emergency department for evaluation of nausea, vomiting, diaphoresis. Patient is hemodynamically stable nontoxic-appearing upon arrival, afebrile. There is possible that patient has food poisoning. Differential also includes pancreatitis, atypical ACS, among others. Workup will be conducted with hematologic labs EKG and troponin. CT imaging abdomen pelvis was considered but patient is nontender has no abdominal pain will be deferred at this time. Initial inventions include crystalloid bolus and Zofran. Upon repeat evaluation patient had persistent swelling and had hypothermic temperature on multiple rectal temperatures given this cold infection of the abdomen is a possibility CT imaging of abdomen pelvis will be obtained with IV contrast. Thyroid studies will be obtained. Ultrasound-guided IV anchored by me. CT imaging repeat evaluation pending at time of transfer of care to the oncoming physician, Dr. Palomares. Procedure: Procedure performed was ultrasound-guided IV. Using the linear probe the right brachial vein was cannulated with a long 18-gauge peripheral IV. Vessel cannula was patent. Images were not saved to permanent archive. Patient tolerated procedure well there are no immediate complications. Jelani BEAVERS: I assumed care of the patient at the time of handoff from the prior provider. On reassessment patient reports marked symptomatic improvement. Laboratory results were independently interpreted by me, no leukocytosis, no significant electrolyte derangement. Renal function unremarkable. Urinalysis not consistent with infection. CT imaging was independently interpreted by me and showed mild enteritis, no evidence of obstruction or other pathology. Interactive discussion was had with patient on his presentation and enteritis. Offered him nausea medication but patient declined. Patient was discharged in stable condition with return precautions. Critical Care <Emir Persaud MD - Last Filed: 01/17/25 23:16> Critical Care Time Critical Care Time: No
--- OUTSIDE RECORDS SUMMARY | 2025-01-17 21:09 | XMS_ITS | Encounter Summary ---
Author Organization Healthcare Address [address] [place] [address] Care Team Providers Care Receiving Clerk Name Role Phone Talha Warren MD Primary Care Provider [phone] Alessio Cuellar MD Unavailable [phone] Encounter Details Date Type Department Care Team (Late Contact Info) Description 07/07/2001 Orders Only External Location [address] [place] [address] Provider, External Social History Tobacco Use Types Packs/Day Years Used Date Smoking Tobacco: Never Assessed Sex and Gender Information Value Date Recorded Sex Assigned at Not on file Legal Sex Male 7:46 PM EDT Gender Identity Not on file Sexual Orientation Not on file documented as of this encounter Plan of Treatment Upcoming Encounters Date Type Department Care Team (Late st Contact Info) Description 09/15/2025 8:45 AM EDT Appointment [facility] Ultrasound [address] [place] [phone] 09/15/2025 10:30 AM EDT Office Visit Medical Office Building Urology [address] [facility], [address] [place] [phone] Guy Villagomez MD [address] [place] [phone] documented as of this encounter Procedures Procedure Name Priority Date/Time Associated Diagnosis Comments XR OUTSIDE IMAGES 07/07/2001 4:17 PM EST documented in this encounter Results * XR OUTSIDE IMAGES (07/07/2001 4:17 PM EST) Anatomical Region Laterality Modality Radiographic Olivia ging 07/07/2001 4:17 PM EST us External Provider IMG XR PROCEDURES Final Result documented in this encounter Visit Diagnoses Not on filedocumented in this encounter Care Teams Receiving Clerk Relationship Specialty Start Date End Date Talha Warren MD [address] [place] [address] [address] [place] [address] PCP - General 02/20/22 Alessio Cuellar MD [address] [place] [address] Referring Physician Cardiology 02/20/22 documented as of this encounter
--- OUTSIDE RECORDS SUMMARY | 2025-01-17 21:09 | XMS_ITS | Encounter Summary ---
Author Organization Healthcare Address [address] [place] [address] Care Team Providers Care Mitten Sewer Name Role Phone Talha Warren MD Primary Care Provider [phone] Alessio Cuellar MD Unavailable [phone] Encounter Details Date Type Department Care Team (Late Contact Info) Description 12/12/2021 Orders Only External Location [address] [place] [address] Provider, External Social History Tobacco Use Types [...] Info) Description 09/15/2025 8:45 AM EDT Appointment [facility] Ultrasound [address] [place] [phone] 09/15/2025 10:30 AM EDT Office Visit Medical Office Building Urology [address] [facility], [address] [place] [phone] Guy Villagomez MD [address] [place] [phone] documented as of this encounter Procedures Procedure Name Priority Date/Time Associated Diagnosis Comments IR OUTSIDE IMAGES 12/12/2021 10:34 AM EDT documented in this encounter Results * IR OUTSIDE IMAGES (12/12/2021 10:34 AM EDT) Anatomical Region Laterality Modality X-Ray Angiograph y 12/12/2021 10:3 4 AM EDT us External Provider IMG IR PROCEDURES Final Result documented in this encounter Visit Diagnoses Not on filedocumented in this encounter Care Teams Mitten Sewer Relationship Specialty Start Date End Date Talha Warren MD [address] [place] [address] [address] [place] [address] PCP - General 02/20/22 Alessio Cuellar MD [address] [place] [address] Referring Physician Cardiology 02/20/22 documented as of this encounter
--- OUTSIDE RECORDS SUMMARY | 2025-01-17 21:09 | XMS_ITS | Clinical Summary ---
Author Organization [facility] Address [address] [place] [address] Care Team Providers Care Order Runner Name Role Phone Talha Warren MD Primary Care Provider [phone] Allergies No known active allergies Medications Dupilumab (Dupixent) 300 MG/2ML solution pen-injector Inject under the skin into the appropriate area as directed Every 14 (Fourteen) Days. Active montelukast (SINGULAIR) 10 MG tablet Daily. 3 Active atorvastatin (LIPITOR) 40 MG tablet Take 1 tablet by mouth Daily. 3 Active cetirizine (zyrTEC) 10 MG tablet Take 1 tablet by mouth Daily. 3 Active pantoprazole (PROTONIX) 40 MG EC tablet Take 1 tablet by mouth Daily. 3 Active tamsulosin (FLOMAX) 0.4 MG capsule 24 hr capsule Take 1 capsule by mouth Daily. 3 Active Trelegy Ellipta 200-62.5-25 MCG/ACT aerosol powder Inhale 1 puff Daily. 3 Active vitamin D (ERGOCALCIFEROL ) 1.25 MG (95787 UT) capsule capsule Take 1 capsule by mouth 1 (One) Time Per Week. 3 Active aspirin 325 MG EC tablet Take 1 tablet by mouth Daily. 90 tablet 3 3 Active metoprolol tartrate (LOPRESSOR) 25 MG tablet Take 1 tablet by mouth Every 12 (Twelve) Hours. 60 tablet 5 3 Active furosemide (LASIX) 40 MG tablet Take 1 tablet by mouth As Needed (for increased swelling in legs, or increased shortness of breath). 30 tablet 3 Active Additional Information Patient taking differently: 80 mgOral As Needed, for increased swelling in legs, or increased shortness of breath, Reported on 02/27/2023 nitroglycerin (NITROSTAT) 0.[address] 1 tablet under the tongue Every 5 (Five) Minutes As Needed for Chest Pain (Systolic BP Greater Than 100). Take no more than 3 doses in 15 minutes. 25 tablet 12 3 Active levalbuterol (XOPENEX) 0.63 MG/3ML nebulizer solution Take 1 ampule by nebulization Every 4 (Four) Hours As Needed for Wheezing. Active potassium chloride (K-DUR,KLOR-CON ) 20 MEQ CR tablet Take 1 tablet by mouth Daily. 30 tablet 1 3 Active Additional Information Patient taking differently: 40 mEqOral Daily, Reported on 02/27/2023 Active Problems Problem Noted Date Diagnosed Date I25.10, CABG, LAAL, MAZE, PFO closure 01/29/23 0 01/15/2023 Overview (01/15/2023): Added automatically from request for surgery [id number] PAF (paroxysmal atrial fibrillation) 01/15/2023 Overview (01/15/2023): Added automatically from request for surgery [id number] Hypertension 02/20/2022 Hyperlipidemia 02/20/2022 GERD (gastroesophageal reflux disease) 2 Asthma 02/20/2022 Family History Medical History Relation Name Comments Cirrhosis Father Colon cancer Father Relation Name Status Comments Father Mother Social History Tobacco Use Types Packs/Day Years Used Date Smoking Tobacco: Never Smokeless Tobacco: Never Tobacco Cessation:Counseling Given: Yes Alcohol Use Standard Drinks/Week Comments Not Currently 0 (1 standard drink = 0.6 oz pur e alcohol) Hunger Vital Sign Answer Date Recorded Within the past 12 months, y ou worried that your food would run out before you got the money to buy more. Never true 01/31/20 Within the past 12 months, t he food you bought just didn't last and you didn't have money to get more. Never true 01/30/2023 Abuse Screen Answer Date Recorded Unsafe at Home or Work/School Not on file Feels Threatened by Someone? Not on file 09/2023 Does Anyone Keep You from Co ntacting Others or Doint Things Outside the Home? Not on file 02/01/2024 Physical Sign of Abuse Present Not on file 0 02/01/2024 Housing Stability Answer Date Recorded Current Living Arrangements Not on file 09/2023 Potentially Unsafe Housing Conditions Not on norberto e 02/01/2024 Family and Community Support Answer Tate e Recorded Help with Day-to-Day Activities Not on file 04/11/2023 Lonely or Isolated Not on file 04/11/2023 Employment Answer Date Recorded Do you want help finding or keeping work or a marilee b? Not on file 04/11/2023 Disabilities Answer Date Recorded Concentrating, Remembering, or Making Decisions Difficulty Not on file 04/11/2023 Doing Errands Independently Difficulty Not on fi le 04/11/2023 Education Answer Date Recorded Help with school or training? Not on file Preferred Language Not on file 02/01/2024 Sex and Gender Information Value Date Recorded Sex Assigned at Not on file Legal Sex Male 12:57 PM EDT Gender Identity Not on file Sexual Orientation Not on file Occupation Industry Job Start Date Job End Date [employer] Not on file Not on file Not on file Last Filed Vital Signs Vital Sign Reading Time Taken Comments Blood Pressure 120/70 02/27/2023 10:41 AM EDT Pulse 64 02/27/2023 10:40 AM EDT Temperature 36.8 C (98.3 F) 02/27/2023 10:40 AM EDT Respiratory Rate 18 02/04/2023 12:3 5 PM EDT Oxygen Saturation 94% 02/27/2023 10: 40 AM EDT Inhaled Oxygen Concentration - - Weight 73.5 kg (162 lb) 02/27/2023 10:4 0 AM EDT Height 170.2 cm (5' 7 ) 02/27/2023 10:4 0 AM EDT patient reported Body Mass Index 25.37 02/27/2023 10:40 AM EDT Plan of Treatment Health Maintenance Due Date Last Done Comments LIPID PANEL 1950 Pneumococcal Vaccine 50+ (1 of 2 - PCV) 1970 TDAP/TD VACCINES (1 - Tdap) 1970 ZOSTER VACCINE (1 of 2) 2001 AAA SCREEN ONCE 2016 ANNUAL WELLNESS VISIT 10/31/2022 HEPATITIS C SCREENING 10/31/2022 COVID-19 Vaccine (3 - season) 2024, 09/06/2020 INFLUENZA VACCINE 03/30/2025 Medical Devices Implanted Type Area Pie Dough Roller Device Identifier Shelf Expiration Date Model / Serial / Lot Kt Hemost Abs Surgifoam Porcn 1gram - [id number] Implanted:Qty : 1 on 01/29/2023 by Patric Regan MD at [facility] Implant N/A: Chest ETH[employer] DIV OF J AND J [id number] 06/18/20241977 Wr Sut Nonabs Mf Ss Ccs 1/2cir Cut/Conv 7/0 18in M655g - [id number] Implanted:Qty : 3 on 01/29/2023 by Patric Regan MD at [facility] Implant N/A: Chest [employer] DIV OF J AND J [id number] / / Clipapplr M/ Endo Ligaclip 9 3/8in Sm - [id number] Implanted:Qty : 1 on 01/29/2023 by Patric Regan MD at [facility] Implant N/A: Chest ETH[employer] ENDO SURGERY DIV OF J AND J [id number] / / [facility] Radiomark Disk Ro Marina - [id number] Implanted:Qty : 1 on 01/29/2023 by Patric Regan MD at [facility] Implant N/A: Chest [employer] [id number] 05/16/2027 [id number] / / [id number] Kt Hemost Abs Surgifoam Porcn 1gram - [id number] Implanted:Qty : 1 on 01/29/2023 by Patric Regan MD at [facility] Implant N/A: Chest [employer] DIV OF J AND J [id number] 06/18/20241977 Wr Pace [employer] M 25 - [id number] Implanted:Qty : 2 on 01/29/2023 by Patric Regan MD at [facility] Lead N/A: Chest A AND E MED [id number] / / Insurance [facility] Advance Directives Documents on File Type Date Recorded 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
--- OUTSIDE RECORDS SUMMARY | 2025-01-17 21:09 | XMS_ITS ---
Author Organization Unknown TREATMENT PLAN Planned [facility] Start Date Provider Encounter for Check-up [id number] FREDERIC Warren
--- OUTSIDE RECORDS SUMMARY | 2025-01-17 21:09 | XMS_ITS | Encounter Summary ---
Author Organization Healthcare Address [address] [place] [address] Care Team Providers Care Fiscal Accountant Name Role Phone Talha Warren MD Primary Care Provider [phone] Alessio Cuellar MD Unavailable [phone] Encounter Details Date Type Department Care Team (Late st Contact Info) Description 04/02/2002 Abstract [facility] Radiation [address] [id number] [address] Radiation Oncology, Physician, [address] [place], [place] [id number] Social History Tobacco Use Types Packs/Day Years Used Date Smoking Tobacco: Never Assessed Sex and Gender Information Value Date Recorded Sex Assigned at Not on file Legal Sex Male 7:46 PM EDT Gender Identity Not on file Sexual Orientation Not on file documented as of this encounter Plan of Treatment Upcoming Encounters Date Type Department Care Team (Late Contact Info) Description 09/15/2025 8:45 AM EDT Appointment [facility] Ultrasound [address] [place] [address] 09/15/2025 10:30 AM EDT Office Visit Medical Office Building Urology [address] [facility], [address] [place] [address] Guy Villagomez MD [address] [place] [address] documented as of this encounter Visit Diagnoses Not on filedocumented in this encounter Care Teams Fiscal Accountant Relationship Specialty Start Date End Date Talha Warren MD [address] [place] [address] [address]1 [address]1 [place] [address] PCP - General 02/20/22 Alessio Cuellar MD [address] [place] [address] Referring Physician Cardiology 02/20/22 documented as of this encounter
--- OUTSIDE RECORDS SUMMARY | 2025-01-17 21:09 | XMS_ITS | Encounter Summary ---
Author Organization Healthcare Address [address] [place] [address] Care Team Providers Care Electrical Accessories I Assembler Name Role Phone Talha Warren MD Primary Care Provider [phone] Alessio Cuellar MD Unavailable [phone] Encounter Details Date Type Department Care Team (Late Contact Info) Description 01/04/2022 Orders Only External Location [address] [place] [address] Provider, External Social History Tobacco Use Types [...] Info) Description 09/15/2025 8:45 AM EDT Appointment [facility] Ultrasound [address] [place] [address] 09/15/2025 10:30 AM EDT Office Visit Medical Office Building Urology [address] [facility], [address] [place] [address] Guy Villagomez MD [address] [place] [address] documented as of this encounter Procedures Procedure Name Priority Date/Time Associated Diagnosis Comments NM OUTSIDE IMAGES 01/04/2022 9:18 AM EDT documented in this encounter Results * NM OUTSIDE IMAGES (01/04/2022 9:18 AM EDT) Anatomical Region Laterality Modality Nuclear Medicine 01/04/2022 9:18 AM EDT us External Provider IMG NM PROCEDURES Final Result documented in this encounter Visit Diagnoses Not on filedocumented in this encounter Care Teams Electrical Accessories I Assembler Relationship Specialty Start Date End Date Talha Warren MD [address] [place] [address] #1 [address]1 [place] [address] PCP - General 02/20/22 Alessio Cuellar MD [address] [place] [address] Referring Physician Cardiology 02/20/22 documented as of this encounter
--- OUTSIDE RECORDS SUMMARY | 2025-01-17 21:09 | XMS_ITS | Encounter Summary ---
Author Organization Healthcare Address [address] [place] [address] Care Team Providers Care Picture Enlarger Name Role Phone Talha Warren MD Primary Care Provider [phone] Alessio Cuellar MD Unavailable [phone] Encounter Details Date Type Department Care Team (Late Contact Info) Description 07/07/2001 Orders Only External Location [address] [place] [address] Provider, External Social History Tobacco Use Types [...] Info) Description 09/15/2025 8:45 AM EDT Appointment [facility] Ultrasound [address] [place] [address] 09/15/2025 10:30 AM EDT Office Visit Medical Office Building Urology [address] [facility], [address] [place] [address] Guy Villagomez MD [address] [place] [address] documented as of this encounter Procedures Procedure [...] on filedocumented in this encounter Care Teams Picture Enlarger Relationship Specialty Start Date End Date Talha Warren MD [address] [place] [address] [address]1 [address]1 [place] [address] PCP - General 02/20/22 Alessio Cuellar MD [address] [place] [address] Referring Physician Cardiology 02/20/22 documented as of this encounter
--- OUTSIDE RECORDS SUMMARY | 2025-01-17 21:09 | XMS_ITS | Encounter Summary ---
Author Organization Healthcare Address [address] [place] [address] Care Team Providers Care Leather Belt Loop Cutter Name Role Phone Talha Warren MD Primary Care Provider [phone] Alessio Cuellar MD Unavailable Encounter Details Date Type Department Care Team (Late Contact Info) Description 01/26/2024 Orders Only External Location [address] [place] [address] Mg Cabral MD [address] [facility] [address] [place] [id number] Social History Tobacco Use Types Packs/Day Years Used Date Smoking Tobacco: Never Passive Smoke Exposure: Current Smokeless Tobacco: Former Alcohol Use Standard Drinks/Week Comments Yes 0 (1 standard drink = 0.6 oz pur e alcohol) rare Sex and Gender Information Value Date Recorded Sex Assigned at Not on file Legal Sex Male 7:46 PM EDT Gender Identity Not on file Sexual Orientation Not on file Occupation Industry Job Start Date Job End Date retired [employer] Not on file Not on file Not on file documented as of this encounter Plan of Treatment Upcoming Encounters Date Type Department Care Team (Late Contact Info) Description 09/15/2025 8:45 AM EDT Appointment [facility] Ultrasound [address] [place] [address] 09/15/2025 10:30 AM EDT Office Visit Medical Office Building Urology [address] [facility] [place] [facility], [address] [place] [address] [facility]agomez [facility] [address] [facility] [address] [place] [address] documented as of this encounter Procedures Procedure Name Priority Date/Time Associated Diagnosis Comments CT OUTSIDE IMAGES 01/26/2024 9:55 AM EDT documented in this encounter Results * CT OUTSIDE IMAGES (01/26/2024 9:55 AM EDT) Anatomical Region Laterality Modality Computed Tomogra phy 01/26/2024 9:55 AM EDT Mg Cabral MD IMG CT PROCEDURES Final Result documented in this encounter Visit Diagnoses Not on filedocumented in this encounter Care Teams Leather Belt Loop Cutter Relationship Specialty Start Date End Date Talha Warren MD [address] [place] [address] #1 [address]1 [place] [address] PCP - General 02/20/22 Alessio Cuellar MD [address] [place] [address] Referring Physician Cardiology 02/20/22 documented as of this encounter
--- OUTSIDE RECORDS SUMMARY | 2025-01-17 21:09 | XMS_ITS | Clinical Summary ---
Author Organization [facility] Address [address] [place] [address] Care Team Providers Care Hand Model Name Role Phone Talha Warren MD Primary Care Provider [phone] Alessio Cuellar MD Unavailable [phone] Allergies No known active allergies Medications Aspirin 81 MG capsule 81 mg 1 (one) time each day. 2 Active Cetirizine HCl 10 MG capsule 10 mg 1 (one) time each day. 2 Active albuterol 108 (90 Base) MCG/ACT inhaler 2 puffs 4 (four) times a day if needed. 2 Active amiodarone (Pacerone) 200 MG tablet Take 200 mg by mouth 1 (one) time each day. 2 Active amLODIPine (Norvasc) 5 MG tablet Take 5 mg by mouth 1 (one) time each day. 2 Active atorvastatin (Lipitor) 40 MG tablet 1 tablet (40 mg) every night. 2 Active levalbuterol (Xopenex) 0.63 MG/3ML nebulizer solution USE 1 IN NEBULIZER EVERY 4 TO 6 HOURS NEEDED FOR COUGH, FOR WHEEZING AND SHORTNESS OF BREATH 2 Active losartan-hydroC HLOROthiazide (Hyzaar) 50-12.5 MG tablet Take 1 tablet by mouth 1 (one) time each day. 2 Active montelukast (Singulair) 10 MG tablet 10 mg 1 (one) time each day. 2 Active pantoprazole (Protonix) 40 MG EC tablet 40 mg 1 (one) time each day. 2 Active Xarelto 20 MG tablet 20 mg 1 (one) time each day. 2 Active tamsulosin (Flomax) 0.4 MG 24 hr capsule 1 capsule (0.4 mg) every night. 2 Active fluticasone (Flonase) 50 MCG/ACT nasal spray Administer 1 spray into each nostril 1 (one) time each day. Shake gently. Before first use, prime pump. After use, clean tip and replace cap. Active budesonide-form oterol (Symbicort) 160-4.5 MCG/ACT inhaler Inhale 2 puffs 2 (two) times a day. Rinse mouth with water after use to reduce aftertaste and incidence of candidiasis. Do not swallow. Active Dupilumab (Dupixent) 300 MG/2ML solution pen-injector Inject under the skin every 14 (fourteen) days. Active Trelegy Ellipta 200-62.5-25 MCG/ACT aerosol powder INHALE 1 PUFF ONCE DAILY 4 Active irbesartan (Avapro) 75 MG tablet Take 1 tablet (75 mg) by mouth 1 (one) time each day. Active metoprolol tartrate (Lopressor) 25 MG tablet Take 0.5 tablets (12.5 mg) by mouth 2 (two) times a day. Active potassium chloride CR (Klor-Con M20) 20 MEQ ER tablet 1 tablet (20 mEq). Take on Friday- Friday- Friday Only Active furosemide (Lasix) 40 MG tablet Take 0.5 tablets (20 mg) by mouth. Take on Friday- Friday- y only Active FeroSul 325 (65 Fe) MG tablet take 1 tablet by mouth three times a week 5 Active Active Problems Problem Noted Date Diagnosed Date Overweight (BMI 25.0-29.9) 02/21/2022 No current use of beta patricia 02/21/2022 Overview (02/21/2022): Due to sinus bradycardia Coronary artery disease 02/20/2022 Left anterior fascicular block 02/20/2022 Hypertension 02/20/2022 Sinus bradycardia 02/20/2022 Overview (02/20/2022): Beta blockers held Atrial fibrillation 02/20/2022 Hyperlipidemia 02/20/2022 GERD (gastroesophageal reflux disease) Asthma 02/20/2022 Mild atrial enlargement, left 02/20/2022 Immunizations Immunization Administration Dates Next Due Influenza, injectable, MDCK, quadrivalent 2017 Influenza, injectable, quadrivalent, preservativ e free 03/29/2016 Pneumococcal Conjugate PCV 13 04/21/2018 Family History Medical History Relation Name Comments Colon cancer Father Cirrhosis Mother Relation Name Status Comments Father Mother Social History Tobacco Use Types Packs/Day Years Used Date Smoking Tobacco: Never Passive Smoke Exposure: Current Smokeless Tobacco: Never Tobacco Cessation:Counseling Given: Not Answered Alcohol Use Standard Drinks/Week Comments Yes 0 (1 standard drink = 0.6 oz pur e alcohol) rare PHQ-2 Answer Date Recorded Patient Health Questionnaire-2 Score 0 09/16/2024 Sex and Gender Information Value Date Recorded Sex Assigned at Not on file Legal Sex Male 7:46 PM EDT Gender Identity Not on file Sexual Orientation Not on file Occupation Industry Job Start Date Job End Date retired [employer] Not on file Not on file Not on file Last Filed Vital Signs Vital Sign Reading Time Taken Comments Blood Pressure 183/83 09/16/2024 10:50 AM EDT Pulse 63 09/16/2024 10:50 AM EDT Temperature 36.4 C (97.5 F) 03/18/2024 8:20 AM EDT Respiratory Rate 10 03/18/2024 8:20 AM EDT Oxygen Saturation 95% 09/16/2024 10:50 AM EDT Inhaled Oxygen Concentration - - Weight 79.4 kg (175 lb) 09/16/2024 10:50 AM EDT Height 170.2 cm (5' 7 ) 09/16/2024 10:50 AM EDT Body Mass Index 27.41 09/16/2024 10:50 AM EDT Plan of Treatment Upcoming Encounters Date Type Department Care Team (Late st Contact Info) Description 09/15/2025 8:45 AM EDT Appointment [facility] Ultrasound [address] [place] [address] 09/15/2025 10:30 AM EDT Office Visit Medical Office Building Urology [address] [facility], [address] [place] [address] Guy Villagomez MD [address] [place] [address] Health Maintenance Due Date Last Done Comments [facility]-Hepatitis C Screening 1950 [facility]-Medicare Annual Wellness (AWV) 1950 [facility]-/Child/Adol SDOH Screenings 1950 [facility]- SDOH Screenings 1969 [facility]-Adult SDOH Screenings 1969 [facility]-DTaP,Tdap,and Td Vaccine s (1 - Tdap) 1970 [facility]-Zoster Vaccines (1 of 2) 1970 [facility]-RSV Vaccine: 60+ Years o r (1 - Risk 60-74 years 1-dose series) 2011 [facility]-Pneumococcal Vaccine: 50 + Years (2 of 2 - PPSV23) 06/16/2018 04/21/2018 [id number] Vaccine (3 - season) 2024 06/20/2021, 09/06/2020 [facility]-Influenza Vaccine (#1) 02/28/202504/21, 03/29/2016 [facility]-Depression Screening 09/16/2025 09/16/2024 [facility]-Obesity Intervention Completed 025, 03/18/2024 HPV Vaccines Aged Out No longer eligi ble based on patient's age to complete this topic [facility]-HIB Vaccines Aged Out No longer e ligible based on patient's age to complete this topic [facility]-Hepatitis A Vaccines Aged Out No longer eligible based on patient's age to complete this topic [facility]-IPV Vaccines Aged Out No longer e ligible based on patient's age to complete this topic [facility]-Rotavirus Vaccines Aged Out No lo nger eligible based on patient's age to complete this topic Insurance [address] [facility] [place] [id number] [facility] MEDICARE Care Teams Hand Model Relationship Specialty Start Date End Date Talha Warren MD [address] [place] [address] #1 #1 [place] [address] PCP - General 02/20/22 Alessio Cuellar MD [address] [place] [address] Referring Physician Cardiology 02/20/22
--- OUTSIDE RECORDS SUMMARY | 2025-01-17 21:09 | XMS_ITS | Clinical Summary ---
Author Organization [facility] Address [address] [place], [place] [address] Care Team Providers Care Parasitologist Name Role Phone Manjinder Blackwell MD Unavailable [phone] Allergies No known active allergies Medications amiodarone (PACERONE) 200 mg tablet Take 200 mg by mouth daily. 2 Active amLODIPine (NORVASC) 5 mg tablet Take 5 mg by mouth daily. 2 Active atorvastatin (LIPITOR) 40 mg Tablet Take 40 mg by mouth daily. 2 Active budesonide-form oteroL (SYMBICORT) 160-4.5 mcg/actuation HFA Aerosol Inhaler Take 2 Puffs by inhalation 2 times daily. Active Cetirizine 10 mg Capsule Take 10 mg by mouth daily. 2 Active fluticasone propionate (FLONASE) 50 mcg/actuation nasal spray Dry [place] 1 [place] into nose daily. Active losartan-hydroc hlorothiazide (HYZAAR) 50-12.5 mg Tablet Take 1 Tablet by mouth daily. 2 Active pantoprazole (PROTONIX) 40 mg Tablet, Delayed Release (E.C.) Take 40 mg by mouth daily. 2 Active albuterol (VENTOLIN/PROAI R/PROVENTIL HFA) 90 mcg/actuation HFA Aerosol Inhaler Take 2 Puffs by inhalation every 4 hours as needed for Wheezing. Active aspirin 81 mg Tablet, Delayed Release (E.C.) Take 81 mg by mouth daily. Active azelastine (ASTELIN) 137 mcg (0.1 %) Aerosol, [place] Branch Dry Branch 1 [place] into nose 2 times daily. Use in each nostril as directed Active diphenhydrAMINE (BENADRYL) 25 mg capsule Take 25 mg by mouth give at bedtime as needed for Sleep. Active montelukast (SINGULAIR) 10 mg Tablet Take 10 mg by mouth nightly at bedtime. Active tamsulosin (FLOMAX) 0.4 mg sustained release capsule Take 0.4 mg by mouth nightly at bedtime. Active rivaroxaban (XARELTO) 20 mg Tablet Take 20 mg by mouth daily. Active Social History Tobacco Use Types Packs/Day Years Used Date Smoking Tobacco: Never Assessed Sex and Gender Information Value Date Recorded Sex Assigned at Not on file Legal Sex Male 11:19 AM EST Gender Identity Not on file Sexual Orientation Not on file Plan of Treatment Health Maintenance Due Date Last Done Comments Cologuard 1950 Colonoscopy 1950 Colorectal Cancer Screening 1950 FIT 1950 Lipid Monitoring 1968 Tetanus Vaccination (Every 10 Years) 1969 Hepatitis C Virus (HCV) Screening 1972 Pneumococcal Vaccine: 50+ Years (1 of 1 - PCV) 001 Zoster-RZV(Shingrix) (1 of 2) 2001 Fall Risk Assessment 2016 COVID-19 Vaccine ( - 2023- season) 2024 Advance Care Planning 06/30/2024 Depression Screening 06/30/2024 Influenza Vaccination (#1) 2025 03/29/2016 RSV Vaccines (1 - 1-dose 75+ series) 2026 Insurance [place] JAC[place]BS [id number] [place] MEDICARE Care Teams Parasitologist Relationship Specialty Start Date End Date Manjinder Blackwell MD [address] [place] [address] [address] [place] [address] Cardiothoracic Surgery 07/26/22
--- OUTSIDE RECORDS SUMMARY | 2025-01-17 21:09 | XMS_ITS | Encounter Summary ---
Author Organization Healthcare Address [address] [place] [address] Care Team Providers Care Hyster Driver Name Role Phone Talha Warren MD Primary Care Provider [phone] Alessio Cuellar MD Unavailable [phone] Encounter Details Date Type Department Care Team (Late Contact Info) Description 12/18/2022 Orders Only External Location [address] [place] [address] Margo Sterling, MODELING AGENT [address] [facility] [address] [place] [address] Social History Tobacco Use Types Packs/Day Years [...] Job Start Date Job End Date retired [employer] Not on file Not on file Not on file documented as of this encounter Plan of Treatment Upcoming Encounters Date Type Department Care Team (Late Contact Info) Description 09/15/2025 8:45 AM EDT Appointment [facility] Ultrasound [address] [place] [address] 09/15/2025 10:30 AM EDT Office Visit Medical Office Building Urology [address] [facility], [address] [place] [address] Guy Villagomez MD [address] [facility] [address] [place] [address] documented as of this encounter Procedures Procedure Name Priority Date/Time Associated Diagnosis Comments CT OUTSIDE IMAGES 12/18/2022 9:55 AM EDT documented in this encounter Results * CT OUTSIDE IMAGES (12/18/2022 9:55 AM EDT) Anatomical Region Laterality Modality Computed Tomogra phy 12/18/2022 9:55 AM EDT us Margo Sterling MODELING AGENT IMG CT PROCEDURES Tamela l Result documented in this encounter Visit Diagnoses Not on filedocumented in this encounter Care Teams Hyster Driver Relationship Specialty Start Date End Date Talha Warren MD [address] [place] [address] [address]1 [address]1 [place] [address] PCP - General 02/20/22 Alessio Cuellar MD [address] [place] [address] Referring Physician Cardiology 02/20/22 documented as of this encounter
--- OUTSIDE RECORDS SUMMARY | 2025-01-17 21:09 | XMS_ITS | Encounter Summary ---
Author Organization Healthcare Address [address] [place] [address] Care Team Providers Care Doctor Of Nurse Anesthesia Name Role Phone Talha Warren MD Primary Care Provider [phone] Alessio Cuellar MD Unavailable [phone] Encounter Details Date Type Department Care Team (Late Contact Info) Description 01/04/2022 Orders Only External Location [address] [place] [address] Provider, External Social History Tobacco Use Types [...] Info) Description 09/15/2025 8:45 AM EDT Appointment [facility] Ultrasound [address] [place] [address] 09/15/2025 10:30 AM EDT Office Visit Medical Office Building Urology [address] [facility], [address] [place] [address] Guy Villagomez MD [address] [place] [address] documented as of this encounter Procedures Procedure Name Priority Date/Time Associated Diagnosis Comments NM OUTSIDE IMAGES 01/04/2022 10:11 AM EDT documented in this encounter Results * NM OUTSIDE IMAGES (01/04/2022 10:11 AM EDT) Anatomical Region Laterality Modality Nuclear Medicine 01/04/2022 10:1 1 AM EDT us External Provider IMG NM PROCEDURES Final Result documented in this encounter Visit Diagnoses Not on filedocumented in this encounter Care Teams Doctor Of Nurse Anesthesia Relationship Specialty Start Date End Date Talha Warren MD [address] [place] [address] [address]1 [address] [place] [address] PCP - General 02/20/22 Alessio Cuellar MD [address] [place] [address] Referring Physician Cardiology 02/20/22 documented as of this encounter
--- OUTSIDE RECORDS SUMMARY | 2025-01-17 21:09 | XMS_ITS | Encounter Summary ---
Author Organization Healthcare Address [address] [place] [address] Care Team Providers Care Credit Review Analyst Name Role Phone Talha Warren MD Primary Care Provider [phone] Alessio Cuellar MD Unavailable [phone] Encounter Details Date Type Department Care Team (Late Contact Info) Description 12/12/2021 Orders Only External Location [address] [place] [address] Provider, External Social History Tobacco Use Types [...] Info) Description 09/15/2025 8:45 AM EDT Appointment [facility] Ultrasound [address] [place] [address] 09/15/2025 10:30 AM EDT Office Visit Medical Office Building Urology [address] [facility], [address] [place] [address] Guy Villagomez MD [address] [place] [address] documented as of this encounter Procedures Procedure Name Priority Date/Time Associated Diagnosis Comments US OUTSIDE IMAGES 12/12/2021 7:09 AM EDT documented in this encounter Results * US OUTSIDE IMAGES (12/12/2021 7:09 AM EDT) Anatomical Region Laterality Modality Ultrasound 12/12/2021 7:09 AM EDT us External Provider IMG US PROCEDURES Final Result documented in this encounter Visit Diagnoses Not on filedocumented in this encounter Care Teams Credit Review Analyst Relationship Specialty Start Date End Date Talha Warren MD [address] [place] [address] [address]1 [address]1 [place] [address] PCP - General 02/20/22 Alessio Cuellar MD [address] [place] [address] Referring Physician Cardiology 02/20/22 documented as of this encounter
--- OUTSIDE RECORDS SUMMARY | 2025-01-17 21:09 | XMS_ITS | Encounter Summary ---
Author Organization [facility] Address [address] [place] [address] Care Team Providers Care Bale Stacker Name Role Phone Manjinder Blackwell MD Unavailable [phone] Encounter Details Date Type Department Care Team (Late st Contact Info) Description 07/31/2022 Telephone [facility] Physicians - Heart & Vascular, [facility] [address] [facility] [address] [place] [address] Manjinder Blackwell MD [address] [place] [address]. [address] [place] [address] Social History Tobacco Use Types Packs/Day Years Used Date Smoking Tobacco: Never Assessed Sex and Gender Information Value Date Recorded Sex Assigned at Not on file Legal Sex Male 11:19 AM EST Gender Identity Not on file Sexual Orientation Not on file documented as of this encounter Miscellaneous Notes * Telephone Encounter - Marina Fuller - 07/31/2022 10:19 AM EST Patient called and cancelled stated that she does not understand why they were referred to a doctor in [place] when there are plenty of docs in [place] they can see. documented in this encounter Plan of Treatment Not on file documented as of this encounter Visit Diagnoses Not on filedocumented in this encounter Care Teams Bale Stacker Relationship Specialty Start Date End Date Manjinder Blackwell MD [address] [facility] [place] [address] Cardiothoracic Surgery 07/26/22 documented as of this encounter
--- OUTSIDE RECORDS SUMMARY | 2025-01-17 21:09 | XMS_ITS | Encounter Summary ---
Author Organization Healthcare Address [address] [place] [address] Care Team Providers Care Solar Pool Heating Installer Name Role Phone Talha Warren MD Primary Care Provider [phone] Alessio Cuellar MD Unavailable [phone] Encounter Details Date Type Department Care Team (Late Contact Info) Description 12/14/2021 Orders Only External Location [address] [place] [address] Provider, External Social History Tobacco Use Types [...] Info) Description 09/15/2025 8:45 AM EDT Appointment [facility] Ultrasound [address]nd [place] [address] 09/15/2025 10:30 AM EDT Office Visit Medical Office Building Urology [address] [facility], [address] [place] [address] Guy Villagomez MD [address] [place] [address] documented as of this encounter Procedures Procedure Name Priority Date/Time Associated Diagnosis Comments US OUTSIDE IMAGES 12/14/2021 11:15 AM EDT documented in this encounter Results * US OUTSIDE IMAGES (12/14/2021 11:15 AM EDT) Anatomical Region Laterality Modality Ultrasound 12/14/2021 11:1 5 AM EDT us External Provider IMG US PROCEDURES Final Result documented in this encounter Visit Diagnoses Not on filedocumented in this encounter Care Teams Solar Pool Heating Installer Relationship Specialty Start Date End Date Talha Warren MD [address] [place] [address] [address]1 [address]1 [place] [address] PCP - General 02/20/22 Alessio Cuellar MD [address] [place] [address] Referring Physician Cardiology 02/20/22 documented as of this encounter
[2025-01-17 21:12] LABS: Albumin Level 4.4 g/dl (3.5-5.0); Chloride 109 mmol/L (98-107); Sodium 139 mmol/L (136-145)
[2025-01-17 21:13] LABS: Potassium 4.0 mmoL/L (3.5-5.1)
[2025-01-17 21:15] LABS: Hematocrit 42.5 % (42.0-52.0); Hemoglobin 14.3 g/dL (14.1-18.0); Immature Granulocytes % 0.3 %; Mean Corpuscular HGB Conc 33.6 g/dL (31.8-35.4); Mean Corpuscular Hemoglobin 33.4 pg (27.0-31.2); Mean Corpuscular Volume 99.3 fl (80-94); Nucleated Red Blood Cells % 0 %; Platelet Count 190 K/mm3 (142-424); Red Blood Count 4.28 M/mm3 (4.60-6.20); Red Cell Distribution Width-SD 47.2 fL; White Blood Count 6.1 K/mm3 (4.8-10.8)
[2025-01-17 21:15] LABS: Alanine Aminotransferase 24 U/L (12-78); Albumin/Globulin Ratio 1.4 (1.1-1.8); Alkaline Phosphatase 114 U/L (38-126); Anion Gap 12.0 mEq/L (5-15); Aspartate Amino Transferase 34 U/L (17-59); Bilirubin,Total 1.0 mg/dl (0.2-1.3); Blood Urea Nitrogen 14 mg/dl (9-20); Carbon Dioxide 22 mmol/L (22.0-30.0); Creatinine Clearance Estimated 79 mL/min (50-200); Creatinine,Serum 1.00 mg/dl (0.66-1.25); Estimated Glomerular Filt Rate 73 ml/min (>60); GFR (African American) 89 ML/MIN (>60); Globulin 3.2 g/dL (1.3-3.2); Lipase 146 U/L (23-300); Total Protein,Serum 7.6 g/dl (6.3-8.2)
[2025-01-17 21:16] LABS: Calcium 9.3 mg/dl (8.4-10.2); Glucose 134 mg/dl (74-100)
[2025-01-17] MEDS: LACTATED RINGERS 1000ML 1,000 ML 999 ML IV (21:18)
[2025-01-17] MEDS: ONDANSETRON 4MG/2ML VIAL 4 MG IV (21:19)
[2025-01-17 21:37] LABS: Troponin I < 0.01 ng/ml (0.00-0.034)
--- OUTSIDE RECORDS SUMMARY | 2025-01-17 22:09 | XMS_ITS | CCD ---
Author Organization Unknown Care Team Providers Care Branch Logistics Supervisor Name Role Phone Unavailable Primary Care Provider Unavailabl e Unavailable Chronic Care Management Unavaila ble Summary Purpose DataExchange Insurance Providers Payer name Policy type / Coverage type Covered libertarian ID Effective Begin Date Effective End Date [facility] [id number] Unknown Unknown Family History Family History data not found Medication Administered No Medication Administered data Reason For Visit No Reason For Visit data Medical Equipment No Medical Equipment data Advance Directives No Advance Directive data
--- OUTSIDE RECORDS SUMMARY | 2025-01-17 22:09 | XMS_ITS | CCD ---
Author Organization Unknown Care Team Providers Care Handyman Name Role Phone Unavailable Primary Care Provider Unavailabl e Unavailable Chronic Care Management Unavaila ble Summary Purpose DataExchange Insurance Providers Payer name Policy type / Coverage type Covered green party ID Effective Begin Date Effective End Date [facility] [id number] Unknown Unknown Family History Family History data not found Medication Administered No Medication Administered data Reason For Visit No Reason For Visit data Medical Equipment No Medical Equipment data Advance Directives No Advance Directive data
--- NOTE | 2025-01-17 22:29 | CT_ITS ---
PROCEDURE INFORMATION: Exam: CT Abdomen And Pelvis With Contrast Exam date and time: 01/17/2025 11:31 PM Age: 74 years old Clinical indication: Vomiting; Additional info: Vomiting, diaphoresis, hypothermia TECHNIQUE: Imaging protocol: Computed tomography of the abdomen and pelvis with contrast. Radiation optimization: All CT scans at this facility use at least one of these dose optimization techniques: automated exposure control; mA and/or kV adjustment per patient size (includes targeted exams where dose is matched to clinical indication); or iterative reconstruction. Contrast material: ISOVUE; Contrast volume: 75 ml; Contrast route: IV; COMPARISON: 1. CT ABDOMEN PELVIS WO/W CON 01/26/2024 9:[address] angio chest 12/11/2021 FINDINGS: Lungs: Tiny left lower lobe granuloma. Heart: Cardiomegaly. Coronary arteries: Coronary artery calcifications. Liver: Low attenuation hepatic lesions measuring up to 10 mm in diameter are incompletely characterized, but are likely cysts. No followup imaging is recommended. Gallbladder and biliary ducts: Cholelithiasis. Pancreas: Normal. No ductal dilation. Spleen: Normal. No splenomegaly. 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 Kidneys and ureters: Low attenuation renal lesions measuring up to 1.6 cm in diameter are incompletely characterized, but are likely cysts. No followup imaging is warranted. Stomach and bowel: Postsurgical changes of the rectosigmoid colon. Mild nonspecific bowel wall thickening of portions of small bowel. Appendix: The appendix may be surgically absent. Intraperitoneal space: Unremarkable. No free air. No significant fluid collection. Vasculature: The arteries demonstrate severe atherosclerotic disease. Lymph nodes: Unremarkable. No enlarged lymph nodes. Urinary bladder: Unremarkable as visualized. Reproductive: Levb-[id number] prostate enlargement. Bones/joints: Status post median sternotomy. Soft tissues: Unremarkable. IMPRESSION: 1. Mild nonspecific bowel wall thickening of portions of small bowel. Please exclude enteritis. 2. Cholelithiasis. COMMENTS: Consistent with the [employer] [employer]'s Incidental Findings Committee white paper (J Am Cony Radiol 2018): Any incidental renal lesion less than 1 cm or classified as too small to characterize, or any incidental cystic renal lesion characterized as simple-appearing, is likely benign. No follow-up imaging is recommended for these lesions per consensus recommendations based on imaging criteria.
--- NOTE | 2025-01-17 22:32 | PC.NURSE ---
Pt's temp 96.0 rectal. MD notified.
[2025-01-17 22:34] LABS: Hepatitis C Ab Qual. W/ RFX NEGATIVE (Negative)
[2025-01-17 23:14] LABS: Thyroid Stimulating Hormone 2.87 uIU/mL (0.465-4.68)
[2025-01-17 23:16] LABS: Free T4 (Free Thyroxine) 1.08 ng/dl (0.78-2.19)
[2025-01-17] MEDS: SODIUM CHLORIDE 0.9% 10ML SYR (RAD ONLY) 10 ML IV (23:37)
[2025-01-17] MEDS: IOPAMIDOL-370 (76%);100ML BOTTLE 75 ML IV (23:37)
[2025-01-17 23:47] LABS: Microscopic, Urine URINE MICROSCOPIC (MICROSCOPIC)
[2025-01-17 23:51] LABS: Bilirubin,Urine Negative (Negative); Color,Urine YELLOW (Yellow); Glucose,Urine (UA) Negative (Negative); Ketones,Urine Negative (Negative); Leukocyte Esterase,Urine Negative (Negative); PH,Urine 7.0 (5.0-8.5); Protein,Urine Negative (Negative); Specific Gravity, Urine 1.010 (1.005-1.030); Urobilinogen,Urine 0.2 EU/dl (0.2)
[2025-01-18] LABS: Bacteria,Urine Trace /lpf; Squamous Epithelial Cell,Urine Occasional #/hpf (0-5); WBC,Urine Occasional #/hpf (0-3)
[2025-01-18 00:01] VITALS: BP 163/83; PULSE 58; RESP 14; O2SAT 97
[2025-01-18 00:30] VITALS: BP 170/89; PULSE 64; RESP 16; O2SAT 97
[2025-01-18 00:48] VITALS: BP 162/88; PULSE 64; RESP 16; TEMP 36.5; O2SAT 97
== END 2025-01-18 00:59 | disposition home or self-care (01) ==
PROVIDERS: Emergency Provider Emergency Medicine; PCP Family Medicine
DX: K52.9 Noninfective gastroenteritis and colitis, unspecified (principal); I10 Essential (primary) hypertension; E78.5 Hyperlipidemia, unspecified
CPT/HCPCS: 74177; 80053; 81001; 83690; 84439; 84443; 84484; 85025; 86803; 87040; 87389; 93005; 96361; 96374; 99285; J2405; J7120; Q9967

== ENCOUNTER 2025-03-29 09:24 | Outpatient (CLI) | payer MEDICARE, SELFPAY ==
--- OUTSIDE RECORDS SUMMARY | 2025-03-29 09:42 | XMS_ITS | Encounter Summary ---
Author Organization Healthcare Address [address] [place] [address] Care Team Providers Care Medical Grade Shoemaker Name Role Phone Talha Warren MD Primary Care Provider [phone] Alessio Cuellar MD Unavailable [phone] Encounter Details Date Type Department Care Team (Late st Contact Info) Description 07/07/2001 Orders Only External Location [address] [place] [address] Provider, External Social History Tobacco Use Types [...] Care Team (Late st Contact Info) Description 09/22/2025 9:15 AM EDT Appointment [facility] [address] [place] [address] 09/22/2025 10:30 AM EDT Office Visit [place] [facility] [address] [place] [address] Guy Villagomez MD [address] [place] [address] documented as of this encounter Procedures Procedure [...] on filedocumented in this encounter Care Teams Medical Grade Shoemaker Relationship Specialty Start Date End Date Talha Warren MD [address] [place] [address] #1 [address]1 [place] [address] PCP - General 02/20/22 Alessio Cuellar MD [address] [place] [address] Referring Physician Cardiology 02/20/22 documented as of this encounter
--- OUTSIDE RECORDS SUMMARY | 2025-03-29 09:42 | XMS_ITS | Encounter Summary ---
Author Organization [facility] Address [address] [place] [address] Care Team Providers Care Secondary Set Up Man Name Role Phone Talha Warren MD Primary Care Provider [phone] Alessio Cuellar MD Unavailable [phone] Encounter Details Date Type Department Care Team (Late Contact Info) Description 01/26/2024 Orders Only External Location [address] [place] [address] Mg Cabral MD [address] [place] [address] Social History Tobacco Use Types Packs/Day Years [...] Job Start Date Job End Date retired [employer] Not on file Not on file Not on file documented as of this encounter Plan of Treatment Upcoming Encounters Date Type Department Care Team (Late Contact Info) Description 09/22/2025 9:15 AM EDT Appointment [facility] [address] [place] [address] 09/22/2025 10:30 AM EDT Office Visit [place] [facility] [address] [place] [address] [facility]omez [facility] [address] [facility] [address] [place] [address] documented as of this encounter Procedures Procedure [...] on filedocumented in this encounter Care Teams Secondary Set Up Man Relationship Specialty Start Date End Date Talha Warren MD [address] [place] [address] #1 [address]1 [place] [address] PCP - General 02/20/22 Alessio Cuellar MD [address] [place], [place] [address] Referring Physician Cardiology 02/20/22 documented as of this encounter
--- OUTSIDE RECORDS SUMMARY | 2025-03-29 09:42 | XMS_ITS | Clinical Summary ---
[facility] Organization [facility] Address [address] [place] [address] Care Team Providers Care Paper Deliverer Name Role Phone Talha Warren MD Primary Care Provider [phone] Allergies No known active allergies Medications Dupilumab [...] Active vitamin D (ERGOCALCIFEROL ) 1.25 MG (47059 UT) capsule capsule Take 1 capsule by [...] (01/15/2023): Added automatically from request for surgery [id number] PAF (paroxysmal atrial fibrillation) 01/15/2023 Overview (01/15/2023): Added automatically from request for surgery [id number] Hypertension 02/20/2022 Hyperlipidemia 02/20/2022 GERD (gastroesophageal reflux [...] Industry Job Start Date Job End Date [employer] Not on file Not on file [...] WELLNESS VISIT 10/31/2022 HEPATITIS C SCREENING 10/31/2022 INFLUENZA VACCINE 01/28/2025 COVID-19 Vaccine (3 - season) 2025, 09/06/2020 Medical Devices Implanted Type Area Cell Room Supervisor Device Identifier Shelf Expiration Date Model / Serial / Lot Kt Hemost Abs Surgifoam Porcn 1gram - [id number] Implanted:Qty : 1 on 01/29/2023 by Patric Regan MD at [facility] Implant N/A: Chest [employer] DIV OF J AND J [id number] 06/18/20241977 Wr Sut Nonabs Mf Ss Ccs 1/2cir Cut/Conv 7/0 18in M655g - [id number] Implanted:Qty : 3 on 01/29/2023 by Patric Regan MD at [facility] Implant N/A: Chest [employer] DIV OF J AND J M655G / / [employer] M/ Endo Ligaclip 9 3/8in Sm - [id number] Implanted:Qty : 1 on 01/29/2023 by Patric Regan MD at [facility] Implant N/A: Chest [employer] ENDO SURGERY DIV OF J AND J MCS20 / / [facility] Radiomark Disk Ro Marina - [id number] Implanted:Qty : 1 on 01/29/2023 by Patric Regan MD at [facility] Implant N/A: Chest [employer] [id number] 05/16/2027 [id number] / / [id number] Kt Hemost Abs Surgifoam Porcn 1gram - [id number] Implanted:Qty : 1 on 01/29/2023 by Patric Regan MD at [facility] Implant N/A: Chest [employer] DIV OF J AND J [id number] 06/18/20241977 Wr Pace [employer] M 25 - [id number] Implanted:Qty : 2 on 01/29/2023 by Patric Regan MD at [facility] Lead N/A: Chest A AND E MED [id number] / / [facility] Advance Directives Documents on File Type Date Recorded Patient Compacting Machine Operator/Tender Expl anation LIVING WILL - SCAN 02/03/2023 [...] Release to patient: Routine Release Care Teams Paper Deliverer Relationship Specialty Start Date End Date Talha Warren MD [address] [place] [address] PCP - General Family Medicine 12/27/22
--- OUTSIDE RECORDS SUMMARY | 2025-03-29 09:42 | XMS_ITS | Encounter Summary ---
Author Organization [facility] Address [address] [place] [address] Care Team Providers Care Mica Patcher Name Role Phone Talha Warren MD Primary Care Provider [phone] Alessio Cuellar MD Unavailable [phone] Encounter Details Date Type Department Care Team (Late Contact Info) Description 01/04/2022 Orders Only External Location [address] [place] [address] Provider, External Social History Tobacco Use Types [...] EDT Appointment [facility] [address] [place] [address] 09/22/2025 10:30 AM EDT Office Visit [place] [facility] [address] [place] [address] Guy Villagomez MD [address] [place] [address] documented as of this encounter Procedures Procedure [...] on filedocumented in this encounter Care Teams Mica Patcher Relationship Specialty Start Date End Date Talha Warren MD [address] [place] [address] #1 [address]1 [place] [address] PCP - General 02/20/22 Alessio Cuellar MD [address] [place] [address] Referring Physician Cardiology 02/20/22 documented as of this encounter
--- OUTSIDE RECORDS SUMMARY | 2025-03-29 09:42 | XMS_ITS | Encounter Summary ---
Author Organization [facility] Address [address] [place] [address] Care Team Providers Care Trim Carpenter Name Role Phone Talha Warren MD Primary Care Provider [phone] Alessio Cuellar MD Unavailable [phone] Encounter Details Date Type Department Care Team (Late Contact Info) Description 12/18/2022 Orders Only External Location [address] [place] [address] Margo Sterling, REHAB TECH [address] [facility] [address] [place], [place] [address] Social History Tobacco Use Types Packs/Day Years [...] Job Start Date Job End Date retired [employer] Not on file Not on file Not on file documented as of this encounter Plan of Treatment Upcoming Encounters Date Type Department Care Team (Late Contact Info) Description 09/22/2025 9:15 AM EDT Appointment [facility] [address] [place] [address] 09/22/2025 10:30 AM EDT Office Visit [place] [facility] [address] [place] [address] Guy Villagomez MD [address] [place] [address] documented as of this encounter Procedures Procedure Name Priority Date/Time Associated Diagnosis Comments CT OUTSIDE IMAGES 12/18/2022 9:55 AM EDT documented in this encounter Results * CT OUTSIDE IMAGES (12/18/2022 9:55 AM EDT) Anatomical Region Laterality Modality Computed Tomogra phy 12/18/2022 9:55 AM EDT Margo Sterling REHAB TECH IMG CT PROCEDURES Tamela l Result documented in this encounter Visit Diagnoses Not on filedocumented in this encounter Care Teams Trim Carpenter Relationship Specialty Start Date End Date Talha Warren MD [address] [place] [address] [address] [place] [address] PCP - General 02/20/22 Alessio Cuellar MD [address] [place] [address] Referring Physician Cardiology 02/20/22 documented as of this encounter
--- OUTSIDE RECORDS SUMMARY | 2025-03-29 09:42 | XMS_ITS | Encounter Summary ---
Author Organization [facility] Address [address] [place] [address] Care Team Providers Care Hand Bindery Assembly Worker Name Role Phone Manjinder Blackwell MD Unavailable Encounter Details Date Type Department Care Team (Late st Contact Info) Description 07/31/2022 Telephone [facility] Physicians - Heart & Vascular, [address] Medical Office [address] [place] [address] Manjinder Blackwell MD [address] [place] [address]. [address] [place] [address] Social History Tobacco Use Types [...] they were referred to a doctor in [place] when there are plenty of docs in [place] they can see. documented in this encounter Plan of Treatment Not on file documented as of this encounter Visit Diagnoses Not on filedocumented in this encounter Care Teams Hand Bindery Assembly Worker Relationship Specialty Start Date End Date Manjinder Blackwell MD [address] [place], [place] [address]. [address] [place] [address] Cardiothoracic Surgery 07/26/22 documented as of this encounter
--- OUTSIDE RECORDS SUMMARY | 2025-03-29 09:42 | XMS_ITS | Encounter Summary ---
Author Organization Healthcare Address [address] [place] [address] Care Team Providers Care Lace Mender Name Role Phone Talha Warren MD Primary Care Provider Alessio Cuellar MD Unavailable [phone] Encounter Details Date Type Department Care Team (Late st Contact Info) Description 07/07/2001 Orders Only External Location [address] [place] [address] Provider, External Social History Tobacco Use Types [...] EDT Appointment [facility] [address] [place] [address] 09/22/2025 10:30 AM EDT Office Visit [place] [facility] [address] [place] [address] Guy Villagomez MD [address] [place] [address] documented as of this encounter Procedures Procedure [...] on filedocumented in this encounter Care Teams Lace Mender Relationship Specialty Start Date End Date Talha Warren MD [address] [place] [address] [address]1 [address] [place] [address] PCP - General 02/20/22 Alessio Cuellar MD [address] [place] [address] Referring Physician Cardiology 02/20/22 documented as of this encounter
--- OUTSIDE RECORDS SUMMARY | 2025-03-29 09:42 | XMS_ITS | Encounter Summary ---
Author Organization [facility] Address [address] [place] [address] Care Team Providers Care Paint Booth Operator Name Role Phone Talha Warren MD Primary Care Provider [phone] Alessio Cuellar MD Unavailable [phone] Encounter Details Date Type Department Care Team (Late Contact Info) Description 12/12/2021 Orders Only External Location [address] [place] [address] Provider, External Social History Tobacco Use Types [...] EDT Appointment [facility] Radiology [address] [place] [address] 09/22/2025 10:30 AM EDT Office [facility] [address], [address] [place] [address] Guy Villagomez MD [address] [place] [address] documented as of this encounter Procedures Procedure [...] on filedocumented in this encounter Care Teams Paint Booth Operator Relationship Specialty Start Date End Date Talha Warren MD [address] [place] [address] #1 [address]1 [place] [address] PCP - General 02/20/22 Alessio Cuellar MD [address] [place] [address] Referring Physician Cardiology 02/20/22 documented as of this encounter
--- OUTSIDE RECORDS SUMMARY | 2025-03-29 09:42 | XMS_ITS | Clinical Summary ---
Author Organization [facility] Address [address] [place], [place] [address] Care Team Providers Care Vocal Performer Name Role Phone Manjinder Blackwell MD Unavailable [phone] Allergies No known active allergies Medications amiodarone [...] fluticasone propionate (FLONASE) 50 mcg/actuation nasal spray [place] 1 [place] into nose daily. Active losartan-hydroc hlorothiazide (HYZAAR) [...] azelastine (ASTELIN) 137 mcg (0.1 %) Aerosol, [place] 1 [place] into nose 2 times daily. Use in [...] of 2) 2001 Fall Risk Assessment 2016 Advance Care Planning 06/30/2024 Depression Screening 06/30/2024 COVID-19 Vaccine ( - 2023- season) 2025 Influenza Vaccination (#1) 2025 03/29/2016 RSV Vaccines (1 - 1-dose 75+ series) 2026 Insurance BENNETT JACOBS [id number] [employer] MEDIC[employer] Care Teams Vocal Performer Relationship Specialty Start Date End Date Manjinder Blackwell MD [address] [place] [address] [address] [place] [address] Cardiothoracic Surgery 07/26/22
--- OUTSIDE RECORDS SUMMARY | 2025-03-29 09:42 | XMS_ITS | Encounter Summary ---
Author Organization [facility] Address [address] [place] [address] Care Team Providers Care Motor Inspection Mechanic Name Role Phone Talha Warren MD Primary Care Provider [phone] Alessio Cuellar MD Unavailable [phone] Encounter Details Date Type Department Care Team (Late st Contact Info) Description 04/02/2002 Abstract [facility] Radiation [id number] [place] [address] Radiation Oncology, Physician, [address] [place], [place] [id number] Social History Tobacco Use Types Packs/Day Years [...] EDT Appointment [facility] Radiology [address] [place] [address] 09/22/2025 10:30 AM EDT Office Visit [place] [facility] [address], [address] [place] [address] Guy Villagomez MD [address] [place] [address] documented as of this encounter Visit Diagnoses Not on filedocumented in this encounter Care Teams Motor Inspection Mechanic Relationship Specialty Start Date End Date Talha Warren MD [address] [place] [address] #1 [address]1 [place] [address] PCP - General 02/20/22 Alessio Cuellar MD [address] [place] [address] Referring Physician Cardiology 02/20/22 documented as of this encounter
--- OUTSIDE RECORDS SUMMARY | 2025-03-29 09:42 | XMS_ITS | Encounter Summary ---
Author Organization [facility] Address [address] [place] [address] Care Team Providers Care Ceo [place] Name Role Phone Talha Warren MD Primary Care Provider [phone] Alessio Cuellar MD Unavailable [phone] Encounter Details Date Type Department Care Team (Late Contact Info) Description 12/12/2021 Orders Only External Location [address] [place] [address] Provider, External Social History Tobacco Use Types [...] EDT Appointment [facility] Radiology [address] [place] [address] 09/22/2025 10:30 AM EDT Office Visit [place] [facility] [address] [place] [address] Guy Villagomez MD [address] [place] [address] documented as of this encounter Procedures Procedure [...] on filedocumented in this encounter Care Teams [employer] [place] Relationship Specialty Start Date End Date Talha Warren MD [address] [place] [address] #1 [address]1 [place] [address] PCP - General 02/20/22 Alessio Cuellar MD [address] [place] [address] Referring Physician Cardiology 02/20/22 documented as of this encounter
--- OUTSIDE RECORDS SUMMARY | 2025-03-29 09:42 | XMS_ITS | Encounter Summary ---
Author Organization [facility] Address [address] [place] [address] Care Team Providers Care Key Entry Operator Name Role Phone Talha Warren MD Primary Care Provider [phone] Alessio Cuellar MD Unavailable [phone] Encounter Details Date Type Department Care Team (Late Contact Info) Description 12/14/2021 Orders Only External Location [address] [place] [address] Provider, External Social History Tobacco Use Types [...] EDT Appointment [facility] Radiology [address] [place] [address] 09/22/2025 10:30 AM EDT Office Visit [place] [facility] [address], [address] [place] [address] Guy Villagomez MD [address] [place] [address] documented as of this encounter Procedures Procedure [...] on filedocumented in this encounter Care Teams Key Entry Operator Relationship Specialty Start Date End Date Talha Warren MD [address] [place] [address] #1 [address]1 [place] [address] PCP - General 02/20/22 Alessio Cuellar MD [address] [place] [address] Referring Physician Cardiology 02/20/22 documented as of this encounter
--- OUTSIDE RECORDS SUMMARY | 2025-03-29 09:42 | XMS_ITS | Clinical Summary ---
Author Organization [facility] Address [address] [place] [address] Care Team Providers Care Merchandising Lead Name Role Phone Talha aWrren MD Primary Care Provider [phone] Alessio Cuellar MD Unavailable [phone] Allergies No known active allergies Medications Aspirin [...] Active Problems Problem Noted Date Diagnosed Date No current use of beta patricia 02/21/2022 Overview (02/21/2022): Due to sinus bradycardia Coronary artery disease 02/20/2022 Left anterior fascicular block 02/20/2022 Hypertension 02/20/2022 Sinus bradycardia 02/20/2022 Overview (02/20/2022): Beta blockers held Atrial fibrillation 02/20/2022 Hyperlipidemia 02/20/2022 GERD (gastroesophageal reflux disease) Asthma 02/20/2022 Resolved Problems Problem Noted Date Diagnosed Date Resolved Date Overweight (BMI 25.0-29.9) 02/21/2022 0 03/20/2025 Mild atrial enlargement, left 02/20/2022 03/20/2025 Immunizations Immunization Administration Dates Next Due Influenza, [...] Job Start Date Job End Date retired [employer] Not on file Not on file [...] EDT Appointment [facility] Radiology [address] [place] [address] 09/22/2025 10:30 AM EDT Office Visit [place] [facility] [address] [place] [address] Guy Villagomez MD [address] [place] [address] Health Maintenance Due Date Last Done Comments [facility]-Hepatitis C Screening 1950 [facility]-Medicare Annual Wellness (AWV) 1950 [facility]-Infant/Child/Adol SDOH Screenings 1950 [facility]- SDOH Screenings 1969 [facility]-Adult SDOH Screenings 1969 [facility]-DTaP,Tdap,and Td Vaccine s (1 - Tdap) 1970 [facility]-Zoster Vaccines (1 of 2) 2001 [facility]-RSV Vaccine: 60+ Years o r (1 - Risk 60-74 years 1-dose series) 2011 [facility]-Pneumococcal Vaccine: 50 + Years (2 of 2 - PPSV23, PCV20, or PCV21) 06/16/2018 04/21/2018 [id number] Vaccine (3 - season) 2025 06/20/2021, 09/06/2020 [facility]-Influenza Vaccine (#1) 02/28/202504/21, 03/29/2016 [...] patient's age to complete this topic Insurance BENNETT SANTANA [id number] [facility] MEDICARE Care Teams Merchandising Lead Relationship Specialty Start Date End Date Talha Warren MD [address] [place] [address] #1 [address]1 [place] [address] PCP - General 02/20/22 Alessio Cuellar MD [address] [place] [address] Referring Physician Cardiology 02/20/22
--- OUTSIDE RECORDS SUMMARY | 2025-03-29 09:42 | XMS_ITS | Encounter Summary ---
Author Organization [facility] Address [address] [place] [address] Care Team Providers Care Plug Stitcher Name Role Phone Talha Warren MD Primary Care Provider [phone] Alessio Cuellar MD Unavailable [phone] Encounter Details Date Type Department Care Team (Late Contact Info) Description 01/04/2022 Orders Only External Location [address] [place] [address] Provider, External Social History Tobacco Use Types [...] EDT Appointment [facility] Radiology [address] [place] [address] 09/22/2025 10:30 AM EDT Office Visit [place] [facility] [address], [address] [place] [address] Guy Villagomez MD [address] [place] [address] documented as of this encounter Procedures Procedure [...] on filedocumented in this encounter Care Teams Plug Stitcher Relationship Specialty Start Date End Date Talha Warren MD [address] [place] [address] #1 [address]1 [place] [address] PCP - General 02/20/22 Alessio Cuellar MD [address] [place] [address] Referring Physician Cardiology 02/20/22 documented as of this encounter
--- OUTSIDE RECORDS SUMMARY | 2025-03-29 10:41 | XMS_ITS | CCD ---
Author Organization Unknown Care Team Providers Care Practice Physician Name Role Phone Unavailable Primary Care Provider Unavailabl e Unavailable Chronic Care Management Unavaila ble Summary Purpose DataExchange Insurance Providers Payer name Policy type / Coverage type Covered constitution party ID Effective Begin Date Effective End Date [facility] [id number] Unknown Unknown Family History Family History data not found Medication Administered No Medication Administered data Reason For Visit No Reason For Visit data Medical Equipment No Medical Equipment data Advance Directives No Advance Directive data
--- OUTSIDE RECORDS SUMMARY | 2025-03-29 10:41 | XMS_ITS | CCD ---
Author Organization Unknown Care Team Providers Care Supervisor Hot Dip Plating Name Role Phone Unavailable Primary Care Provider Unavailabl e Unavailable Chronic Care Management Unavaila ble Summary Purpose DataExchange Insurance Providers Payer name Policy type / Coverage type Covered democrat ID Effective Begin Date Effective End Date [facility] [id number] Unknown Unknown Family History Family History data not found Medication Administered No Medication Administered data Reason For Visit No Reason For Visit data Medical Equipment No Medical Equipment data Advance Directives No Advance Directive data
[2025-03-29 10:54] LABS: Hematocrit 43.3 % (42.0-52.0); Hemoglobin 14.1 g/dL (14.1-18.0); Immature Granulocytes % 0.4 %; Mean Corpuscular HGB Conc 32.6 g/dL (31.8-35.4); Mean Corpuscular Hemoglobin 32.5 pg (27.0-31.2); Mean Corpuscular Volume 99.8 fl (80-94); Nucleated Red Blood Cells % 0 %; Platelet Count 177 K/mm3 (142-424); Red Blood Count 4.34 M/mm3 (4.60-6.20); Red Cell Distribution Width-SD 47.3 fL; White Blood Count 5.2 K/mm3 (4.8-10.8)
[2025-03-29 11:27] LABS: Alanine Aminotransferase 22 U/L (12-78); Albumin Level 3.7 g/dl (3.5-5.0); Alkaline Phosphatase 146 U/L (38-126); Anion Gap 12.4 mEq/L (5-15); Aspartate Amino Transferase 28 U/L (17-59); Bilirubin,Direct 0.2 mg/dl (0.0-0.4); Bilirubin,Indirect 1.0 mg/dL (0.0-0.9); Bilirubin,Total 1.2 mg/dl (0.2-1.3); Bilirubin,Unconjugated 1.0 mg/dL (0.0-1.1); Blood Urea Nitrogen 15 mg/dl (9-20); Calcium 9.2 mg/dl (8.4-10.2); Carbon Dioxide 26 mmol/L (22.0-30.0); Chloride 107 mmol/L (98-107); Cholesterol 194 mg/dl (140-200); Creatinine,Serum 1.00 mg/dl (0.66-1.25); Estimated Glomerular Filt Rate 73 ml/min (>60); GFR (African American) 89 ML/MIN (>60); Glucose 86 mg/dl (74-100); HDL Cholesterol 83 mg/dl (40-60); Magnesium 2.1 mg/dl (1.6-2.3); Potassium 4.4 mmoL/L (3.5-5.1); Sodium 141 mmol/L (136-145); Total Protein,Serum 6.3 g/dl (6.3-8.2); Triglycerides 97 mg/dl (30-150)
[2025-03-29 11:43] LABS: Free Thyroxine Index 2.6 ug/dL (5.93-13.13); T4 (Thyroxine) 8.2 ug/dl (5.53-11.0); Triiodothryronine (T3) Uptake 32 % (23.5-40.5)
[2025-03-29 11:57] LABS: Thyroid Stimulating Hormone 1.54 uIU/mL (0.465-4.68)
[2025-03-29 11:58] LABS: Hemoglobin A1C 5.3 % (4.0-6.0)
[2025-03-29 12:17] LABS: Vitamin B12 823 pg/mL (239-931)
[2025-03-29 12:52] LABS: Folate 7.94 ng/mL
[2025-03-29 14:30] LABS: 25-OH Vitamin D, Total 21.5 ng/mL (30-100)
== END 2025-03-29 23:59 | disposition home or self-care (01) ==
LOC: LAB 09:25
PROVIDERS: PCP Family Medicine; Visit Provider Nurse Practitioner
DX: Z13.1 Encounter for screening for diabetes mellitus (principal); I25.10 Atherosclerotic heart disease of native coronary artery without angina pectoris; Z95.1 Presence of aortocoronary bypass graft; I48.0 Paroxysmal atrial fibrillation; E78.5 Hyperlipidemia, unspecified; I10 Essential (primary) hypertension; R53.83 Other fatigue; R55 Syncope and collapse
CPT/HCPCS: 36415; 80048; 80061; 80076; 82306; 82607; 82746; 83036; 83735; 84436; 84443; 84479; 85025; 93270

== ENCOUNTER 2025-04-19 07:57 | Outpatient (CLI) | payer MEDICARE, SELFPAY ==
--- NOTE | 2025-04-19 | CA_ITS ---
APPROVED REPORT Exam: Pharmacologic Technologist: Chapis Medina Stress Nurse: Saray RIVERA, RN Ht: 5 ft 7 in Wt: 184 lbs BSA: 1.95 m2 HR: 57 bpm BP: 169/83 mmHg Indications: Near Syncope, Dyspnea, Hx CABG, Known CAD, Extreme fatigue Stress Test Details Test: Lexiscan HR Resting HR: 57 bpm Max Heart Rate (APMHR): 147.355227 bpm Max HR Achieved: 103 bpm Target HR (85% APMHR): 124.556373 bpm % of APMHR: 70.07 Recovery HR: 62 bpm BP Resting BP: 134.0/74.0 mmHg Max BP: 160.0/79.0 mmHg Recovery BP: 160.0/79.0 mmHg ECG Resting ECG: Sinus rhythm Stress ECG Conclusion Lungs clear to auscultation prior to test start. Symptoms: None Arrhythmias/Ectopy: PVC ST-T Changes: Less than 0.[address] segment changes. Conclusion: Nondiagnostic ECG/Lexiscan Electronically signed by : Nikki Pérez MD 04/20/2025 12:23:21
--- OUTSIDE RECORDS SUMMARY | 2025-04-19 07:59 | XMS_ITS | Encounter Summary ---
Author Organization [facility] Address [address] [place] [address] Care Team Providers Care Program Clerk Name Role Phone Talha Warren MD Primary Care Provider [phone] Alessio Cuellar MD Unavailable [phone] Encounter Details Date Type Department Care Team (Late st Contact Info) Description 04/02/2002 Abstract [facility] Radiation [id number] [place] [address] Radiation Oncology, Physician, [address] [place], [place] [address] Social History Tobacco Use Types Packs/Day Years [...] EDT Appointment [facility] Radiology [address] [place] [address] 09/22/2025 10:30 AM EDT Office Visit [place] [facility] [address], [address] [place] [address] Guy Villagomez MD [address] [place] [address] documented as of this encounter Visit Diagnoses Not on filedocumented in this encounter Care Teams Program Clerk Relationship Specialty Start Date End Date Talha Warren MD [address] [place] [address] #1 [address]1 [place] [address] PCP - General 02/20/22 Alessio Cuellar MD [address] [place] [address] Referring Physician Cardiology 02/20/22 documented as of this encounter
--- OUTSIDE RECORDS SUMMARY | 2025-04-19 07:59 | XMS_ITS | Encounter Summary ---
Author Organization [facility] Address [address] [place] [address] Care Team Providers Care Applications Programmer Analyst Name Role Phone Talha Warren MD Primary Care Provider [phone] Alessio Cuellar MD Unavailable [phone] Encounter Details Date Type Department Care Team (Late Contact Info) Description 12/14/2021 Orders Only External Location [address] [place] [address] Provider, External Social History Tobacco Use Types [...] EDT Appointment [facility] Radiology [address] [place] [address] 09/22/2025 10:30 AM EDT Office Visit [place] [facility] [address], [address] [place] [address] Guy Villagomez MD [address] [place] [address] documented as of this encounter Procedures Procedure [...] on filedocumented in this encounter Care Teams Applications Programmer Analyst Relationship Specialty Start Date End Date Talha Warren MD [address] [place] [address] #1 [address]1 [place] [address] PCP - General 02/20/22 Alessio Cuellar MD [address] [place] [address] Referring Physician Cardiology 02/20/22 documented as of this encounter
--- OUTSIDE RECORDS SUMMARY | 2025-04-19 07:59 | XMS_ITS | Encounter Summary ---
Author Organization [facility] Address [address] [place] [address] Care Team Providers Care Dogger Name Role Phone Talha Warren MD Primary Care Provider [phone] Alessio Cuellar MD Unavailable [phone] Encounter Details Date Type Department Care Team (Late Contact Info) Description 12/18/2022 Orders Only External Location [address] [place] [address] Margo Sterling, SKULL CHOPPER [address] [facility] [address] [place], [place] [address] Social History Tobacco Use Types Packs/Day Years [...] Job Start Date Job End Date retired [employer] Not on file Not on file Not on file documented as of this encounter Plan of Treatment Upcoming Encounters Date Type Department Care Team (Late Contact Info) Description 09/22/2025 9:15 AM EDT Appointment [facility] Radiology [address] [place] [address] 09/22/2025 10:30 AM EDT Office Visit [place] [facility] [address], [address] [place] [address] Guy Villagomez MD [address] [place] [address] documented as of this encounter Procedures Procedure Name Priority Date/Time Associated Diagnosis Comments CT OUTSIDE IMAGES 12/18/2022 9:55 AM EDT documented in this encounter Results * CT OUTSIDE IMAGES (12/18/2022 9:55 AM EDT) Anatomical Region Laterality Modality Computed Tomogra phy 12/18/2022 9:55 AM EDT Margo Sterling SKULL CHOPPER IMG CT PROCEDURES Tamela l Result documented in this encounter Visit Diagnoses Not on filedocumented in this encounter Care Teams Dogger Relationship Specialty Start Date End Date Talha Warren MD [address] [place] [address] #1 [address]1 [place] [address] PCP - General 02/20/22 Alessio Cuellar MD [address] [place] [address] Referring Physician Cardiology 02/20/22 documented as of this encounter
--- OUTSIDE RECORDS SUMMARY | 2025-04-19 07:59 | XMS_ITS | Encounter Summary ---
Author Organization [facility] Address [address] [place] [address] Care Team Providers Care Chemical Research Worker Name Role Phone Talha Warren MD Primary Care Provider [phone] Alessio Cuellar MD Unavailable [phone] Encounter Details Date Type Department Care Team (Late Contact Info) Description 12/12/2021 Orders Only External Location [address] [place] [address] Provider, External Social History Tobacco Use Types [...] EDT Appointment [facility] Radiology [address] [place] [address] 09/22/2025 10:30 AM EDT Office Visit [place] [facility] [address] [place] [address] Guy Villagomez MD [address] [place] [address] documented as of this encounter Procedures Procedure [...] on filedocumented in this encounter Care Teams Chemical Research Worker Relationship Specialty Start Date End Date Talha Warren MD [address] [place] [address] #1 [address]1 [place] [address] PCP - General 02/20/22 Alessio Cuellar MD [address] [place] [address] Referring Physician Cardiology 02/20/22 documented as of this encounter
--- OUTSIDE RECORDS SUMMARY | 2025-04-19 07:59 | XMS_ITS | Encounter Summary ---
Author Organization [facility] Address [address] [place] [address] Care Team Providers Care Document Control Manager Name Role Phone Talha Warren MD Primary Care Provider [phone] Alessio Cuellar MD Unavailable [phone] Encounter Details Date Type Department Care Team (Late Contact Info) Description 01/04/2022 Orders Only External Location [address] [place] [address] Provider, External Social History Tobacco Use Types [...] EDT Appointment [facility] Radiology [address] [place] [address] 09/22/2025 10:30 AM EDT Office Visit [place] [facility] [address] [place] [address] Guy Villagomez MD [address] [place] [address] documented as of this encounter Procedures Procedure [...] on filedocumented in this encounter Care Teams Document Control Manager Relationship Specialty Start Date End Date Talha Warren MD [address] [place] [address] #1 [address]1 [place] [address] PCP - General 02/20/22 Alessio Cuellar MD [address] [place] [address] Referring Physician Cardiology 02/20/22 documented as of this encounter
--- OUTSIDE RECORDS SUMMARY | 2025-04-19 07:59 | XMS_ITS | Encounter Summary ---
Author Organization [facility] Address [address] [place] [address] Care Team Providers Care Dimensional Inspector Name Role Phone Talha Warren MD Primary Care Provider [phone] Alessio Cuellar MD Unavailable [phone] Encounter Details Date Type Department Care Team (Late Contact Info) Description 12/12/2021 Orders Only External Location [address] [place] [address] Provider, External Social History Tobacco Use Types [...] EDT Appointment [facility] Radiology [address] [place] [address] 09/22/2025 10:30 AM EDT Office Visit [place] [facility] [address] [place] [address] Guy Villagomez MD [address] [place] [address] documented as of this encounter Procedures Procedure [...] on filedocumented in this encounter Care Teams Dimensional Inspector Relationship Specialty Start Date End Date Talha Warren MD [address] [place] [address] #1 [address]1 [place] [address] PCP - General 02/20/22 Alessio Cuellar MD [address] [place] [address] Referring Physician Cardiology 02/20/22 documented as of this encounter
--- OUTSIDE RECORDS SUMMARY | 2025-04-19 07:59 | XMS_ITS | Encounter Summary ---
Author Organization [facility] Address [address] [place] [address] Care Team Providers Care X Ray Developing Machine Operator Name Role Phone Talha Warren MD Primary Care Provider [phone] Alessio Cuellar MD Unavailable [phone] Encounter Details Date Type Department Care Team (Late st Contact Info) Description 07/07/2001 Orders Only External Location [address] [place] [address] Provider, External Social History Tobacco Use Types [...] EDT Appointment [facility] Radiology [address] [place] [address] 09/22/2025 10:30 AM EDT Office Visit [place] [facility] [address] [place] [address] Guy Villagomez MD [address] [place] [address] documented as of this encounter Procedures Procedure [...] on filedocumented in this encounter Care Teams X Ray Developing Machine Operator Relationship Specialty Start Date End Date Talha Warren MD [address] [place] [address] #1 [address]1 [place] [address] PCP - General 02/20/22 Alessio Cuellar MD [address] [place] [address] Referring Physician Cardiology 02/20/22 documented as of this encounter
--- OUTSIDE RECORDS SUMMARY | 2025-04-19 07:59 | XMS_ITS | Clinical Summary ---
Author Organization [facility] Address [address] [place], [place] [address] Care Team Providers Care Senior Product Development Scientist Name Role Phone Manjinder Blackwell MD Unavailable [phone] Allergies No known active allergies Medications amiodarone [...] fluticasone propionate (FLONASE) 50 mcg/actuation nasal spray [place] 1 [place] into nose daily. Active losartan-hydroc hlorothiazide (HYZAAR) [...] azelastine (ASTELIN) 137 mcg (0.1 %) Aerosol, [place] 1 [place] into nose 2 times daily. Use in [...] Planning 06/30/2024 Depression Screening 06/30/2024 COVID-19 Vaccine (1 - 2024- season) 2025 Influenza Vaccination (#1) 2025 03/29/2016 RSV Vaccines (1 - 1-dose 75+ series) 2026 Insurance B[place]T JACOBS [id number] [employer] MEDICARE Care Teams Senior Product Development Scientist Relationship Specialty Start Date End Date Manjinder Blackwell MD [address] [place] [address] [address] [place] [address] Cardiothoracic Surgery 07/26/22
--- OUTSIDE RECORDS SUMMARY | 2025-04-19 07:59 | XMS_ITS | Encounter Summary ---
Author Organization [facility] Address [address] [place] [address] Care Team Providers Care Labeling Strategist Name Role Phone Talha Warren MD Primary Care Provider [phone] Alessio Cuellar MD Unavailable [phone] Encounter Details Date Type Department Care Team (Late Contact Info) Description 01/04/2022 Orders Only External Location [address] [place] [address] Provider, External Social History Tobacco Use Types [...] EDT Appointment [facility] Radiology [address] [place] [address] 09/22/2025 10:30 AM EDT Office Visit [place] [facility] [address] [place] [address] Guy Villagomez MD [address] [place] [address] documented as of this encounter Procedures Procedure [...] on filedocumented in this encounter Care Teams Labeling Strategist Relationship Specialty Start Date End Date Talha Warren MD [address] [place] [address] #1 [address]1 [place] [address] PCP - General 02/20/22 Alessio Cuellar MD [address] [place] [address] Referring Physician Cardiology 02/20/22 documented as of this encounter
--- OUTSIDE RECORDS SUMMARY | 2025-04-19 07:59 | XMS_ITS | Clinical Summary ---
[facility] Address [address] [place] [address] Care Team Providers Care Cardio Tech Name Role Phone Talha Warren MD Primary Care Provider [phone] Allergies No known active allergies Medications Dupilumab [...] Active vitamin D (ERGOCALCIFEROL ) 1.25 MG (21865 UT) capsule capsule Take 1 capsule by [...] (01/15/2023): Added automatically from request for surgery [id number] PAF (paroxysmal atrial fibrillation) 01/15/2023 Overview (01/15/2023): Added automatically from request for surgery [id number] Hypertension 02/20/2022 Hyperlipidemia 02/20/2022 GERD (gastroesophageal reflux [...] Industry Job Start Date Job End Date [employer] Not on file Not on file [...] 2025, 09/06/2020 Medical Devices Implanted Type Area Traffic Superintendent Device Identifier Shelf Expiration Date Model / Serial / Lot Kt Hemost Abs Surgifoam Porcn 1gram - [id number] Implanted:Qty : 1 on 01/29/2023 by Patric Regan MD at [facility] Implant N/A: Chest [employer] DIV OF J AND J [id number] 06/18/20241977 Wr Sut Nonabs Mf Ss Ccs 1/2cir Cut/Conv 7/0 18in M655g - [id number] Implanted:Qty : 3 on 01/29/2023 by Patric Regan MD at [facility] Implant N/A: Chest [employer] DIV OF J AND J M655G / / [employer] M/ Endo Ligaclip 9 3/8in Sm - [id number] Implanted:Qty : 1 on 01/29/2023 by Patric Regan MD at [facility] Implant N/A: Chest [employer] ENDO SURGERY DIV OF J AND J MCS20 / / Susanne [facility] Radiomark Disk Ro Marina - [id number] Implanted:Qty : 1 on 01/29/2023 by Patric Regan MD at [facility] Implant N/A: Chest [employer] [id number] 05/16/2027 [id number] / / [id number] Kt Hemost Abs Surgifoam Porcn 1gram - [id number] Implanted:Qty : 1 on 01/29/2023 by Patric Regan MD at [facility] Implant N/A: Chest [employer] DIV OF J AND J [id number] 06/18/20241977 Wr Pace [employer] M 25 - [id number] Implanted:Qty : 2 on 01/29/2023 by Patric Regan MD at [facility] Lead N/A: Chest A AND E MED [id number] / / [facility] Advance Directives Documents on File Type Date Recorded Patient Telemetry Monitor Expl anation LIVING WILL - SCAN 02/03/2023 [...] Release to patient: Routine Release Care Teams Cardio Tech Relationship Specialty Start Date End Date Talha Warren MD [address] [place] [address] PCP - General Family Medicine 12/27/22
--- OUTSIDE RECORDS SUMMARY | 2025-04-19 07:59 | XMS_ITS | Encounter Summary ---
Author Organization [facility] Address [address] [place] [address] Care Team Providers Care Engineering Director Name Role Phone Manjinder Blackwell MD Unavailable [phone] Encounter Details Date Type Department Care Team (Late st Contact Info) Description 07/31/2022 Telephone [facility] Physicians - Heart & Vascular, [address] Medical Office Building [address] [place] [address] Manjinder Blackwell MD [address] [place] [address]. [address] [place] [address] Social History Tobacco Use Types [...] when there are plenty of docs in [place] they can see. documented in this encounter Plan of Treatment Not on file documented as of this encounter Visit Diagnoses Not on filedocumented in this encounter Care Teams Engineering Director Relationship Specialty Start Date End Date Manjinder Blackwell MD [address] [place], [place] [address]. [address] [place] [address] Cardiothoracic Surgery 07/26/22 documented as of this encounter
--- OUTSIDE RECORDS SUMMARY | 2025-04-19 07:59 | XMS_ITS | Clinical Summary ---
Author Organization [facility] Address [address] [place] [place] [address] Care Team Providers Care Director Property Name Role Phone Talha Warren MD Primary Care Provider [phone] Alessio Cuellar MD Unavailable [phone] Allergies No known active allergies Medications Aspirin [...] Job Start Date Job End Date retired [employer] Not on file Not on file [...] EDT Appointment [facility] [address] [place] [address] 09/22/2025 10:30 AM EDT Office Visit [place] [facility] [address] [place] [address] Guy Villagomez MD [address] [place] [address] Health Maintenance Due Date Last [...] - PPSV23, PCV20, or PCV21) 06/16/2018 04/21/2018 [id number] Vaccine (3 - season) 2025 06/20/2021, 09/06/2020 [...] to complete this topic Insurance BENNETT SANTANA [id number] [facility] MEDICARE Care Teams Director Property Relationship Specialty Start Date End Date Talha Warren MD [address] [place] [address] [address] [place] [id number] PCP - General 02/20/22 Alessio Cuellar MD [address] [place] [address] Referring Physician Cardiology 02/20/22
--- OUTSIDE RECORDS SUMMARY | 2025-04-19 07:59 | XMS_ITS | Encounter Summary ---
Author Organization [facility] Address [address] [place] [address] Care Team Providers Care Water Pollution Specialist Name Role Phone Talha Warren MD Primary Care Provider [phone] Alessio Cuellar MD Unavailable [phone] Encounter Details Date Type Department Care Team (Late st Contact Info) Description 07/07/2001 Orders Only External Location [address] [place] [id number] Provider, External Social History Tobacco Use Types [...] EDT Appointment [facility] [address] [place] [address] 09/22/2025 10:30 AM EDT Office Visit [place] [facility] [address] [place] [address] Guy Villagomez MD [address] [place] [address] documented as of this encounter Procedures Procedure [...] on filedocumented in this encounter Care Teams Water Pollution Specialist Relationship Specialty Start Date End Date Talha Warren MD [address] [place] [address] [address] [place] [address] PCP - General 02/20/22 Alessio Cuellar MD [address] [place] [address] Referring Physician Cardiology 02/20/22 documented as of this encounter
--- NOTE | 2025-04-19 08:00 | NM_ITS ---
APPROVED REPORT Exam: Nuclear Stress Test Indication: SOB, Fatigue, HTN, High cholesterol, CAD, CABG Patient Location: Outpatient Stress Tech: Chapis Medina [place] Tech:Christine Aguayo, ARRT, RT (R)(N) Ht: 5 ft 7 in Wt: 180 lbs HR: 55 bpm BP: 169/83 mmHg BSA: 1.93 m2 TID: 1.02 BMI: 28.1 History: SOB, Fatigue, HTN, High cholesterol, CAD, CABG Procedure: Patient received 0.4 mg of intravenous Lexiscan, resting heart rate 55 bpm, resting blood pressure 169/83 mmHg, with Lexiscan maximum heart rate achieved was 103 bpm which is % of the maximum predicted heart rate and blood pressure was 160/79 mmHg. With Lexiscan, patient denied any complaint of chest pain. Cardiac Stress and Resting SPECT Images: Cardiac Stress and Resting SPECT images were obtained using technetium 99m Myoview 32.3 mCi stress and 10.66 mCi at rest. Resting and stress imaging in supine positions demonstrate a mild, fixed, tapered perfusion defect in the basal inferior LV wall. This is no longer visualized with prone stress imaging. Findings are suggestive of diaphragmatic attenuation. Gated imaging demonstrates normal global and regional LV systolic function. LVEF is calculated at 56%. Conclusion: Diaphragmatic attenuation is present. No evidence of fixed or reversible perfusion defects. Gated imaging demonstrates normal global and regional LV systolic function. LVEF is calculated at 56%. Electronically signed by : Nikki Pérez MD 04/20/2025 12:56:41
--- OUTSIDE RECORDS SUMMARY | 2025-04-19 08:00 | XMS_ITS | Encounter Summary ---
Author Organization [facility] Address [address] [place] [address] Care Team Providers Care Accounting Office Manager Name Role Phone Talha Warren MD Primary Care Provider [phone] Aelssio Cuellar MD Unavailable [phone] Encounter Details Date Type Department Care Team (Late Contact Info) Description 01/26/2024 Orders Only External Location [address] [place] [address] Mg Cabral MD [address] [place] [address] Social History Tobacco Use Types Packs/Day Years [...] Job Start Date Job End Date retired [employer] Not on file Not on file Not on file documented as of this encounter Plan of Treatment Upcoming Encounters Date Type Department Care Team (Late Contact Info) Description 09/22/2025 9:15 AM EDT Appointment [facility] [address] [place] [phone] 09/22/2025 10:30 AM EDT Office Visit [place] [facility] [address] [place] [address] [facility] [address] [facility] [address] [place] [address] documented as of this encounter Procedures Procedure [...] on filedocumented in this encounter Care Teams Accounting Office Manager Relationship Specialty Start Date End Date Talha Warren MD [address] [place] [address] [address] [place] [address] PCP - General 02/20/22 Alessio Cuellar MD [address] [place], [place] [address] Referring Physician Cardiology 02/20/22 documented as of this encounter
--- OUTSIDE RECORDS SUMMARY | 2025-04-19 08:59 | XMS_ITS | CCD ---
Author Organization Unknown Care Team Providers Care Railroad Worker Name Role Phone Unavailable Primary Care Provider Unavailabl e Unavailable Chronic Care Management Unavaila ble Summary Purpose DataExchange Insurance Providers Payer name Policy type / Coverage type Covered democrat ID Effective Begin Date Effective End Date [facility] [id number] Unknown Unknown Family History Family History data not found Medication Administered No Medication Administered data Reason For Visit No Reason For Visit data Medical Equipment No Medical Equipment data Advance Directives No Advance Directive data
[2025-04-19 09:26] VITALS: BP 169/83; PULSE 57; RESP 14
[2025-04-19] MEDS: SODIUM CHLORIDE 0.9% 10ML SYR (RAD ONLY) 10 ML IV ×2 (09:35)
[2025-04-19] MEDS: ISOTOPE MYOVIEW (PER STUDY) 1 DOSE IV (09:35)
--- NOTE | 2025-04-19 10:30 | CA_ITS ---
APPROVED REPORT EXAM: Comprehensive 2D, Doppler, and color-flow Echocardiogram Ship'S Surveyor: Fernanda Edmondson CRT Ht: 5 ft 7 in Wt: 184lbs BSA: 1.95 BP: 168/93 mmHg Indications: Shortness of Breath, Atrial Fibrillation, Fatigue, CAD, Hypertension/HDD, CABG 2D Dimensions LA Volume 27.40 mL LA Volume Index 13.70 mL/m2 (M/F) 16-34 M-Mode Dimensions RVDd 1.94 cm (0.9-2.6) LA Diam 3.62 cm (1.9-4.0) LVDd 5.59 cm (3.5-5.7) LVDs 3.97 cm (3.5-5.7) IVSd 1.62 cm (0.6-1.1) PWd 0.50 cm (0.6-1.1) EF (Teich) 55.00% FS 29.00% EDV (Teich) 153.00 mL TAPSE 1.78 (<1.7) ESV (Teich) 68.80 mL LV Diastology E Decel Time 207 (160-240 msec) E/A Ratio 0.81 MED A' 11.10 cm/s LAT A' 10.20 cm/s Aortic Valve AO Peak GR. 4.40 mmHg Mitral Valve MV A Velocity 92.0 (40-130 cm/s) E/A Ratio 0.81 Pulmonary Valve PV Peak Velocity 116.0 (50-150 cm/s) Tricuspid Valve TR P. Velocity 250.00 cm/s RAP Estimate 10.00 mmHg RVSP 35.00 mmHg Left Ventricle The left ventricle is normal size. Left ventricular systolic function is normal. The left ventricular ejection fraction is within the normal range. There is increased left ventricular wall thickness. There is normal LV segmental wall motion. Transmitral Doppler flow pattern suggests impaired LV relaxation. LVEF is 55% Right Ventricle The right ventricle is mildly dilated. The right ventricular systolic function is normal. Atria The left atrium is mildly dilated. The right atrium is mildly dilated. There is no color Doppler evidence of interatrial shunt. Aortic Valve The aortic valve is mildly thickened. There is no hemodynamically significant aortic valvular stenosis. Trace aortic regurgitation is present. Mitral Valve The mitral valve is normal in structure. No evidence of mitral valve stenosis. Trace mitral regurgitation is present. Tricuspid Valve The tricuspid valve leaflets are thin and pliable. Mild tricuspid regurgitation. RVSP is 20-25 mmHg. Pulmonic Valve The pulmonary valve is grossly normal in structure. Mild pulmonic valve regurgitation is present. Great Vessels The aortic root is normal in size. IVC is normal in size and collapses >50% with inspiration. Pericardium There is no pericardial effusion. Other Information Study Quality: Fair Conclusion Normal biventricular systolic function. Mild RV dilation. Mild biatrial dilation. Mild TR, mild PI. Electronically signed by : Nikki Pérez MD 04/25/2025 13:00:07
== END 2025-04-19 23:59 | disposition home or self-care (01) ==
LOC: RAD 07:58
PROVIDERS: PCP Family Medicine; Visit Provider Nurse Practitioner
DX: I08.8 Other rheumatic multiple valve diseases (principal); I49.3 Ventricular premature depolarization; I11.9 Hypertensive heart disease without heart failure; E78.00 Pure hypercholesterolemia, unspecified; I25.10 Atherosclerotic heart disease of native coronary artery without angina pectoris; Z95.1 Presence of aortocoronary bypass graft; Z13.1 Encounter for screening for diabetes mellitus; I48.0 Paroxysmal atrial fibrillation; R55 Syncope and collapse
CPT/HCPCS: 78452; 93017; 93018; 93306; A9502; J2785